=== PATIENT | male | born 1955 | race Caucasian/White ===

== ENCOUNTER 2016-12-23 13:58 | Inpatient (IN) ==
[2016-12-23] MEDS ORDERED: ALUM/MAG/SIMETH/LIDO VISC 1:1 30 ML BOTTLE PO STA (14:20)
[2016-12-23] MEDS ORDERED: ASPIRIN 325 MG TABLET PO STA (14:20)
[2016-12-23] MEDS ORDERED: NITROGLYCERIN 2% OINT 1 INCH/GM PACK TOP STA (14:20)
[2016-12-23] MEDS ORDERED: ENOXAPARIN 100 MG/ML SYRINGE SUBCUT STA (14:20)
[2016-12-23] MEDS ORDERED: ENOXAPARIN 100 MG/ML SYRINGE SUBCUT ONE (14:26)
[2016-12-23] MEDS ORDERED: ALUM/MAG/SIMETH/LIDO VISC 1:1 30 ML BOTTLE PO ONE (14:26)
[2016-12-23] MEDS ORDERED: ASPIRIN 325 MG TABLET ONE (14:26)
[2016-12-23] MEDS ORDERED: NITROGLYCERIN 2% OINT 1 INCH/GM PACK TOP ONE (14:27)
[2016-12-23 14:38] LABS: Basophils # 0.1 10*3/uL (0.0-0.2); Basophils % 1.4 % (0.0-0.8); Eosinophils # 0.1 10*3/uL (0.0-0.87); Eosinophils % 1.2 % (0.00-10.9); Hematocrit 41.5 VOL% (42.0-52.0); Hemoglobin 14.1 GM/DL (14.0-18.0); Immature Granulocytes % 0.2 %; Immature Granulocytes Absolute 0.02 #; Lymphocytes # 3.5 10*3/uL (1.4-4.0); Lymphocytes % 37.7 % (21.2-54.2); Mean Corpuscular Hemoglobin 31 PG (27-34); Mean Corpuscular Volume 90.2 FL (87-102); Mean Platelet Volume 11.7 FL (9.6-12.0); Monocytes # 0.9 10*3/uL (0.11-0.8); Monocytes % 9.3 % (1.7-12.7); Neutrophils # 4.6 10*3/uL (1.4-7.4); Neutrophils % 50.2 % (38.7-73.9); Platelet Count 205 T/CUMM (130-400); Red Cell Distribution Width 13.6 % (9.3-17.3); White Blood Count 9.2 T/CUMM (4-12)
--- NOTE | 2016-12-23 14:40 | Emergency Department Note ---
Trevin Joe Gwan, am scribing for, and in the presence of, Jorge Bonilla MD 14:20 . Irene Joe James D, MD, personally performed the services described in this documentation, ascribed by Jass Zhong in my presence, and it is both accurate and complete 440 . Arrival - Arrival Chief Complaint: Chest Pain Stated Complaint: chest pains ED Nursing Triage Note: c/o chest pain that started 2-3 days. +SOB denies n/v Mode of Arrival: Ambulatory Limitations: No Limitations Source: Patient, Old Records Reviewed, RN Notes Reviewed Time Seen by Provider: 12/23/16 14:12 - History of Present Illness HPI Narrative: Pt is a 61 y/o male who presents to the ED with a c/o chest pain with an onset 3 days. His associated sxs have been SOB. He describes his pain as tight and that his heart is "doing something" and that is pain worsened today. He confirmed that he smokes 1.5 ppd and that he use to smoke 1 ppd. Patient denies any prior heart problems, have diaphoresis or any N/V. No other problems/ complaints reported in ED. Onset (ago): day(s) Consistency: constant Severity: moderate Allergies/Adverse Reactions: Allergies Allergy/AdvReac Type Severity Reaction Status Date / Time Buspirone [From BuSpar] Allergy Unknown/Unable Verified 12/23/16 14:07 to obtain Review of System - Review of System 12 point system: reviewed and no additional remarkable complaints except as stated - Review of System Respiratory: Present: as per HPI, other (shortness of breathe) Cardiovascular: Present: as per HPI, chest pain Medical,Surgical,& Family Hx - Medical History Psychological: History of: Depression Neurology: History of: Peripheral Neuropathy Musculoskeletal: History of: Back/Neck Problems - Social History Smoking Status: Smoker, status unknown Frequency of Alcohol Use: None Type of Drug Use: None Exam Vital Signs: Vital Signs Temperature 99.7 F H 12/23/16 14:04 Pulse Rate 92 H 12/23/16 14:17 Respiratory Rate 20 12/23/16 14:17 Blood Pressure 156/80 12/23/16 14:17 O2 Sat by Pulse Oximetry 100 12/23/16 14:17 GENERAL: This is a chronically ill-appearing white male in no apparent distress. VITAL SIGNS: Reviewed HEENT: Head is atraumatic and normocephalic. Pupils are equal round react to light. Extraocular movements are intact. Oropharynx is benign with moist mucous membranes. NECK: Neck is soft and supple without tenderness. There are no masses. There is no lymphadenopathy. LUNGS: Lungs are clear to auscultation. Chest rises symmetrically. There is no chest wall tenderness. CV: Heart is regular rate and rhythm without murmurs rubs or gallops. ABDOMEN: Abdomen is soft, nontender to palpation. There are no abdominal abnormal masses palpated. There is no organomegaly. Bowel sounds are present and active. SKIN: Skin is warm and dry. No rash. EXTREMITIES: Patient has full range of motion without tenderness. There is no pedal edema. NEUROLOGIC: Awake alert and oriented 4. Cranial nerves II through XII are grossly intact. Motor is 5 over 5 in all extremities bilaterally. Course - Consultations Consultation #1: Discussed with hospitalist. Patient will be admitted to their service. Time: 15:13 Results - Labs CBC & BMP: 12/23/16 14:21 12/23/16 14:21 Lab Results: I have reviewed the patients labs Labs: Laboratory Tests 12/23/16 14:21 Troponin I < 0.015 - EKG EKG results: interpreted by ERMD - Impressions EKG: Sinus tachycardia with a rate of 102, nonspecific ST-T wave changes, normal axis. - Diagnostic Findings Procedure: Chest x-ray: image reviewed by me (No infiltrates, no pleural effusions.) Disposition Clinical Impression: Chest pain Case discussed with: patient Disposition: Still a Patient Condition: Stable
--- NOTE | 2016-12-23 14:47 | XRay Report ---
XR chest 2V Indication: Chest pain Comparison: 14 October 2009 Findings: The heart and mediastinum are normal in size and configuration. The pulmonary vascularity is normal in caliber. Lung volumes are increased with prominent bronchial markings. No lung infiltrates, effusions, pneumothorax or other abnormality is demonstrated. Impression: Chronic lung changes. No acute process or significant change. PROCEDURE INTERPRETED AT [facility] DEPARTMENT OF RADIOLOGY Final Report Signed by: Dr. Sukhdev Diaz
[2016-12-23 14:50] LABS: PT Patient Result 10.5 SECS; Partial Thromboplastin Time 29.5 SECS (0-40)
[2016-12-23 15:07] LABS: Alanine Aminotransferase 13 U/L (16-61); Albumin 3.9 G/DL (3.4-5.0); Alkaline Phosphatase 72 U/L (45-117); Aspartate Amino Transferase 16 U/L (0-37); Bilirubin,Total < 0.39 MG/DL (0.2-1.0); Blood Urea Nitrogen 11 MG/DL (7-18); Calcium 8.8 MG/DL (8.5-10.1); Glucose 86 MG/DL (74-106); Osmolality,Calculated 276.4 MOS/KG (273-304); Potassium 3.8 MMOL/L (3.5-5.1); Sodium 140 MMOL/L (136-145); Total Protein 7.9 G/DL (6.4-8.3)
[2016-12-23] MEDS ORDERED: NITROGLYCERIN SL 0.4 MG TABLET SL PRN (15:16)
[2016-12-23] MEDS ORDERED: ACETAMINOPHEN 325 MG TABLET PO PRN (15:16)
[2016-12-23] MEDS ORDERED: LACTULOSE 20 GM/30 ML UDCUP PO PRN (15:16)
[2016-12-23] MEDS ORDERED: DOCUSATE SODIUM 100 MG CAPSULE PO PRN (15:16)
[2016-12-23 15:37] LABS: Apearance,Urine CLEAR (Clear); Bilirubin,Urine Negative (Negative); Blood, Urine Negative (Negative); Glucose,Urine (UA) Negative (Negative); Ketones,Urine Negative (Negative); Nitrite,Urine Negative (Negative); Protein,Urine Negative; Urine Color Straw (Yellow); Urine Specific Gravity 1.004 (1.001-1.035); Urine Urobilinogen < 2.0 EU/DL (0.2-1.0); WBC,Urine <1 /HPF (0-6)
[2016-12-23 15:44] LABS: Barbiturates Screen,Urine Negative (Negative); Benzodiazepines Screen,Urine Negative (Negative); Cannabinoid Screen,Urine Positive (Negative); Opiate Screen,Urine Negative (Negative); Phencyclidine Screen,Urine Negative (Negative)
--- NOTE | 2016-12-23 16:21 | Hospitalist History & Physical ---
Assessment and Plan - Time spent with patient Time spent with patient: Greater than 30 minutes (due to assessment, plan and documentation) (1) Chest pain Status: Acute Assessment and plan: serial troponins, ekg's cardiology consultation vte prophylaxis Current Visit: Yes History of Present Illness Chief complaint: chest pain History of present illness: Mr. Mohan is a 61 year old male who presented to the ED today for chest pain. He states that he was sitting at home when his misternal chest pain that radiated to his left arm. Denies any diaphoresis. He states that he does have some shortness of breath at baseline, and had no more SOB that usual. He smoke marijuana for pain control and smoke 1 ppd of tobacco. He is not diabetic, or hypertensive. He states that he has been told that his cholesterol is borderline. Denies drinking. He has never had an TN, CVA, DVT/PE, or malignancy to his knowledge. He does have a family history of TN, CA, CVA, Clots, DM, HTN and HLD. He also has nerve disease. He takes ultram 50 mg TID, Baclofen 10 mg TID, Lyrica TID and Elavil 50 at HS for disc problems. He sees Dr. Zapien in [place]. Troponins are negative at this time. He will be admitted to telemetry for serial troponins, ekg's and cardiology consultation. Further plan and addendum to follow by Dr. Sumi Pagan. Home Medications Medication Instructions Recorded Confirmed Type Amitriptyline [Elavil] 50 mg PO BEDTIME 12/23/16 12/23/16 History Baclofen Tab [Lioresal] 10 mg PO TID 12/23/16 12/23/16 History Pregabalin [Lyrica] 100 mg PO TID 12/23/16 12/23/16 History Tramadol HCl [Tramadol Tab] 50 mg PO TID 12/23/16 12/23/16 History Allergies Allergy/AdvReac Type Severity Reaction Status Date / Time Buspirone [From BuSpar] Allergy Unknown/Unable Verified 12/23/16 14:07 to obtain Medical,Surgical,& Family Hx - Medical History Psychological: History of: Depression Neurology: History of: Peripheral Neuropathy Musculoskeletal: History of: Back/Neck Problems - Surgical History Surgical History: noncontributory - Family History Family History: Reports;: Family Cancer, Family Diabetes, Family Heart Disease, Family Hematology, Family Hypertension, Family Stroke - Social History Smoking Status: Current every day smoker Frequency of Alcohol Use: None Type of Drug Use: Marijuana Marital Status: Lives With:: Spouse Functional capacity: independent ambulation - Constitutional Constitutional: Absent: chills, fatigue, fever(s), weakness - EENT Eyes: Absent: blurry vision, diplopia Ears: Absent: decreased hearing, tinnitus Nose, mouth and throat: Absent: dysphagia, headache(s) - Cardiovascular Cardiovascular: Present: chest pain at rest, radiating jaw, neck or arm pain. Absent: diaphoresis, dyspnea on exertion, palpitations - Respiratory Respiratory: Absent: cough, hemoptysis, dyspnea on exertion - Gastrointestinal Gastrointestinal: Absent: abdominal pain, melena, nausea, vomiting - Genitourinary Genitourinary: Absent: difficulty urinating, hematuria - Musculoskeletal Musculoskeletal: Absent: arthralgias, joint swelling - Neurological Neurological: Absent: confusion, dizziness - Psychiatric Psychiatric: Absent: anxiety, confusion, depression - Endocrine Endocrine: Absent: cold intolerance, heat intolerance - Hematologic/Lymphatic Hematologic/Lymphatic: Absent: easy bleeding, easy bruising Exam - Constitutional General appearance: normal weight, no acute distress - Head Head exam: Present: normal inspection, normocephalic - Eye Eye exam: Present: EOMI. Absent: scleral icterus Pupils: Present: VALE, normal accommodation - ENT ENT exam: Present: normal exam, normal oropharynx - Neck Neck exam: Present: normal inspection. Absent: lymphadenopathy - Respiratory Respiratory exam: Present: clear to auscultation bilaterally. Absent: accessory muscle use - Cardiovascular Cardiovascular exam: Present: regular rate and rhythm. Absent: carotid bruit - GI/Abdominal GI/Abdominal exam: Present: normal bowel sounds, soft. Absent: tenderness - Extremities Exam Extremities exam: Present: normal inspection. Absent: edema - Back Exam Back exam: Present: normal inspection. Absent: muscle spasm - Neurological Exam Neurological exam: Present: alert, oriented X3 - Psychiatric Psychiatric exam: Present: normal affect, normal mood - Skin Skin exam: Present: normal color, warm, dry, intact Results - Labs CBC & BMP: 12/23/16 14:21 12/23/16 14:21 Lab Results: I have reviewed the past 24 hour labs
--- NOTE | 2016-12-23 17:47 | CT Report ---
EXAM: CT chest PE study DATE: December 23, 2016 COMPARISON: CT chest with contrast March 05, 2010 REASON: Chest pain TECHNIQUE: Axial images of the chest were obtained after administration of 80 cc of Omnipaque 350 intravenous contrast. Coronal and sagittal reformatted images were also acquired as well as coronal/sagittal MIP images. The study was performed per pulmonary embolism protocol. Total DLP was 226.8 mGy*cm. FINDINGS: Pulmonary arteries: There is no evidence of pulmonary embolism through the segmental pulmonary arteries. Vascular/heart: The thoracic aorta is normal in size. Evaluation of the aorta is limited by poor opacification. There is mild scattered calcified plaque at the arteries, including the coronary arteries. The heart is normal in size, and no pericardial effusion is seen. Lymph nodes: There are a few upper normal-sized mediastinal lymph nodes. A subcarinal lymph node measures 0.9 cm in short axis diameter on image 75. There are also a few nonspecific mildly prominent left hilar lymph nodes. A left hilar lymph node on image 78 measures 1.3 cm in short axis diameter. No suspicious right hilar or axillary adenopathy is identified. Other mediastinum: Otherwise unremarkable. Chest wall: Unremarkable. Lungs: There is a 1.8 m noncalcified nodule with irregular margins at the left lung apex. This abuts the pleural surface and is concerning for a neoplastic process. Other considerations include focal scarring. Correlation with a PET CT may be helpful. There is moderate to severe emphysema with bleb formation. This is mainly in a centrilobular distribution and is post prominent at the right upper lobe and lower lobes. Minimal scattered opacities are present within both lungs, mainly within the basilar portions of both lower lobes and at the lung apices. This is most consistent with atelectasis and likely scarring. A 0.6 cm noncalcified nodule is seen adjacent to the major fissure on image 80. This is nonspecific, and follow-up is recommended. No pneumothorax or pleural effusion is identified. Bones: There is mild height loss at the superior endplate of T7. This could representing a prominent Schmorl's node or mild indeterminate age compression fracture. No significant retropulsion is seen. There are several remote left rib fractures. Upper abdomen: No acute process is seen within the visualized upper abdomen. IMPRESSION: 1. No evidence of pulmonary embolism. 2. A 1.8 cm noncalcified nodule with irregular margins is seen at the left lung apex. It abuts the pleural surface and is concerning for a neoplastic process. Other considerations include focal scarring. Correlation with PET CT may be helpful. 3. Nonspecific mildly prominent left hilar lymph nodes. Metastatic adenopathy is in the differential given the nodule at the left lung apex. 4. Nonspecific 0.6 cm noncalcified nodule adjacent to the right minor fissure. Follow-up with CT is recommended in 3-6 months to evaluate for stability. 5. Moderate to severe emphysema and minimal scattered atelectasis and probable scarring within both lungs. PROCEDURE INTERPRETED AT [facility] DEPARTMENT OF RADIOLOGY Final Report Signed by: Dr. Dixon Davidson
[2016-12-23] MEDS: BACLOFEN 10 MG TABLET PO SCH (21:02)
[2016-12-23] MEDS: traMADol 50 MG TABLET PO SCH (21:02)
[2016-12-23] MEDS: AMITRIPTYLINE 50 MG TABLET PO SCH (21:02)
[2016-12-23] MEDS: PREGABALIN 100 MG CAPSULE PO SCH (21:03)
[2016-12-23] MEDS: ENOXAPARIN 40 MG/0.4 ML SYRINGE SUBCUT SCH (21:03)
--- NOTE | 2016-12-23 21:32 | EKG Report ---
Stationary ECG Study [facility] Test Date: 12/23/2016 9:31:18 PM Pat Name: MEGHAN JOHNSON Department: Room: 262 Gender: M Vacuum Pan Operator: EDISON : 1955 Requested by: Jorge Brooks Order Number: [id number] Reading MD: HILARY BAPTISTE Intervals [place] Rate: 57 P: 61 TN: 120 QRS: 64 QRSD: 85 T: 83 QT: 433 QTc: 428 Interpretive Statements SINUS RHYTHM WITH OCCASIONAL VENTRICULAR PREMATURE COMPLEXES Electronically Signed On 12-23-16 22:32:47 SUPPLY CHAIN DESIGN MANAGER by HILARY BAPTISTE [email or web address]
[2016-12-24 04:31] LABS: Basophils # 0.1 10*3/uL (0.0-0.2); Basophils % 1.5 % (0.0-0.8); Eosinophils # 0.2 10*3/uL (0.0-0.87); Eosinophils % 2.4 % (0.00-10.9); Hematocrit 43.5 VOL% (42.0-52.0); Hemoglobin 14.4 GM/DL (14.0-18.0); Immature Granulocytes % 0.1 %; Immature Granulocytes Absolute 0.01 #; Lymphocytes # 2.8 10*3/uL (1.4-4.0); Mean Corpuscular HGB Conc 33.1 GM/DL (32-36); Mean Corpuscular Hemoglobin 30 PG (27-34); Monocytes # 0.8 10*3/uL (0.11-0.8); Monocytes % 10.8 % (1.7-12.7); Neutrophils # 3.4 10*3/uL (1.4-7.4); Neutrophils % 47.2 % (38.7-73.9); Platelet Count 199 T/CUMM (130-400); Red Blood Count 4.73 MC/CUMM (3.8-5.5); Red Cell Distribution Width 13.9 % (9.3-17.3); White Blood Count 7.2 T/CUMM (4-12)
[2016-12-24 05:02] LABS: Albumin 3.5 G/DL (3.4-5.0); Bilirubin,Total 0.5 MG/DL (0.2-1.0); Calcium 8.6 MG/DL (8.5-10.1); Total Protein 6.9 G/DL (6.4-8.3)
[2016-12-24 05:03] LABS: Magnesium 2.3 MG/DL (1.8-2.4); Risk Ratio 6.41; VLDL CHOLESTEROL 29.6 MG/DL
--- NOTE | 2016-12-24 07:28 | EKG Report ---
Stationary ECG Study [facility] Test Date: 12/23/2016 2:05:04 PM Pat Name: MEGHAN JOHNSON Department: Room: 262 Gender: M Scleroscope Tester: Parviz Franklin : 1955 Requested by: Jorge Brooks Order Number: [id number] Reading MD: HILARY BAPTISTE Intervals [place] Rate: 102 P: 68 AR: 142 QRS: 77 QRSD: 86 T: 83 QT: 305 QTc: 364 Interpretive Statements SINUS TACHYCARDIA Electronically Signed On 12-25-16 00:11:55 PRINTED CIRCUIT BOARDS PLASMA ETCHER by HILARY BAPTISTE [email or web address]
[2016-12-24] MEDS: BACLOFEN 10 MG TABLET PO SCH ×3 (09:37→20:59)
[2016-12-24] MEDS: PREGABALIN 100 MG CAPSULE PO SCH ×3 (09:37→22:42)
[2016-12-24] MEDS: PANTOPRAZOLE 40 MG TABLET PO SCH (09:38)
[2016-12-24] MEDS: traMADol 50 MG TABLET PO SCH ×3 (09:38→20:59)
--- NOTE | 2016-12-24 11:04 | Hospitalist Progress Note ---
Assessment and Plan - Time spent with patient Time spent with patient: Greater than 30 minutes (1) Pulmonary nodule Status: Acute Assessment and plan: We'll consult pulmonary. Current Visit: Yes (2) Chest pain Status: Acute Assessment and plan: Cardiac risk factors present. Serial troponins negative. EKG unremarkable. We 'll consult cardiology. Current Visit: Yes (3) Tobacco abuse counseling Status: Acute Assessment and plan: Patient was counseled on tobacco abuse. Current Visit: Yes (4) Hyperlipidemia Status: Acute Assessment and plan: We'll start Lipitor. Current Visit: Yes Hospitalist: Subjective Interval history: Patient has no complaints. He's had no chest pain overnight. He has no shortness of breath. Exam - Constitutional Vitals: Period Temp Pulse Resp BP Sys/Goldman Pulse Ox Last 24 Hr 96.7 F-97.8 F 55-71 16-20 94-134/61-86 93-100 General appearance: no acute distress - Head Head exam: Present: normocephalic, atraumatic - Eye Eye exam: Present: EOMI Pupils: Present: VALE - ENT ENT exam: Present: normal exam - Neck Neck exam: Present: normal inspection - Respiratory Respiratory exam: Present: clear to auscultation bilaterally. Absent: rhonchi, wheezes - Cardiovascular Cardiovascular exam: Present: regular rate and rhythm. Absent: gallop, rubs, systolic murmur - GI/Abdominal GI/Abdominal exam: Present: normal bowel sounds, soft. Absent: distended, firm , guarding, tenderness, rebound - Extremities Exam Extremities exam: Present: normal inspection. Absent: calf tenderness, edema Results - Labs CBC & BMP: 12/24/16 03:21 12/24/16 03:21 Lab Results: I have reviewed the past 24 hour labs
--- NOTE | 2016-12-24 16:18 | Cardiology Consult Note ---
Assessment and Plan (1) Chest pain Status: Acute Current Visit: Yes (2) Pulmonary nodule Status: Acute Current Visit: Yes (3) Tobacco abuse counseling Status: Acute Current Visit: Yes (4) Hyperlipidemia Status: Acute Current Visit: Yes History of Present Illness - Data of Consult Patient: new to practice Consult date: 12/24/16 Requesting Physician: Sumi Pagan - Consult Narrative Reason for consult: CP History of present illness: Mr. Mohan is a 61 year old male without a prior cardiac history, risk factors significant for tobacco use and a family history of early coronary artery disease. He came to the hospital to be evaluated for chest pain. He experienced an acute onset of a severe chest discomfort in his upper central chest described as a pressure. He thinks it may have radiated into his right upper quadrant. There may have been some associated shortness of breath. Symptom duration was 15 minutes or greater without clear triggers or alleviators. Taking deep breaths may have helped. He did experience similar symptoms with less severity approximately one week prior, again without clear triggers or alleviators. At the time of my interview he is symptom free. He denies any orthopnea, lower extremity edema, palpitations, presyncope or syncope. He has some chronic pain. Part of his workup has included a chest CT which ruled out pulmonary embolism but demonstrated some abnormal pulmonary findings which could be consistent with malignancy, particularly in the setting of this patient's tobacco use. At the time of my interview he is asymptomatic. Positive review of systems: Chronic pain in his back, neck, limbs. He has been experiencing headaches with increased frequency lately. He is noted have a mildly decreased left lower extremity pulse and he acknowledges pain in this limb, although it is difficult to elucidate whether or not this is true claudication. Impression: 1. Chest pain-there is some atypical features to the pain's characteristics, and in the patient's ECG and cardiac biomarkers are unremarkable. However, given his significant tobacco use he is at at least intermediate risk for coronary artery disease. We can further risk stratify him on Monday with stress testing. 2. Hyperlipidemia-we will start statin therapy. 3. Abnormal chest CT-pulmonology has been consulted. 4. Headaches-defer further workup for possible sources of this given his history to the hospitalist service. 5. Tobacco use-the merits and techniques of cessation have been addressed. 6. Decreased left lower extremity pulse-consider outpatient ABIs. CC: Sumi Pagan MD - Home Medications and Allergies Home Medications: Home Medications Medication Instructions Recorded Confirmed Type Amitriptyline [Elavil] 50 mg PO BEDTIME 12/23/16 12/23/16 History Baclofen Tab [Lioresal] 10 mg PO TID 12/23/16 12/23/16 History Pregabalin [Lyrica] 100 mg PO TID 12/23/16 12/23/16 History Tramadol HCl [Tramadol Tab] 50 mg PO TID 12/23/16 12/23/16 History Allergies/Adverse Reactions: Allergies Allergy/AdvReac Type Severity Reaction Status Date / Time Buspirone [From BuSpar] Allergy Unknown/Unable Verified 12/23/16 14:07 to obtain 12 point system: reviewed and no additional remarkable complaints except as stated Medical,Surgical,& Family Hx - Medical History Psychological: History of: Depression Neurology: History of: Peripheral Neuropathy Musculoskeletal: History of: Back/Neck Problems - Family History Family History: Reports;: Family Cancer, Family Diabetes, Family Heart Disease, Family Hematology, Family Hypertension, Family Stroke - Social History Smoking Status: Current every day smoker Frequency of Alcohol Use: None Type of Drug Use: Marijuana Functional capacity: independent ambulation Physical Examination Vital Signs Temp Pulse Resp BP Pulse Ox 99.7 F H 97 H 18 175/102 97 12/23/16 14:04 12/23/16 14:04 12/23/16 14:04 12/23/16 14:04 12/23/16 14:04 Other: General appearance: normal weight, no acute distress - Head Head exam: Present: normal inspection, normocephalic, atraumatic. Absent: hematoma, laceration - Eye Eye exam: Present: EOMI. Absent: conjunctival injection, nystagmus, periorbital swelling, scleral icterus, laceration to eyelids Pupils: Present: PERRL. Absent: constricted, dilated, fixed, irregular, unequal - ENT ENT exam: Present: normal exam, normal external ear exam - Neck Neck exam: Present: normal inspection. Absent: lymphadenopathy, meningismus, tenderness, thyromegaly - Respiratory Respiratory exam: Present: Prolonged expiration with rhonchi bilaterally. Absent: accessory muscle use, chest wall tenderness - Cardiovascular Cardiovascular exam: Present: regular rate and rhythm. Absent: carotid bruit, gallop, JVD, rubs - GI/Abdominal GI/Abdominal exam: Present: normal bowel sounds, soft. Absent: distended, firm , guarding, hernia, mass, tenderness, rebound. - Extremities Exam Extremities exam: Present: Decreased hair distribution the bilateral lower extremities, decreased left lower extremity pulse compared to right lower extremity. Absent: calf tenderness, edema - Back Exam Back exam: Present: normal inspection. Absent: muscle spasm, vertebral tenderness - Neurological Exam Neurological exam: Present: alert, oriented X3, grossly intact without resting or intention tremor - Psychiatric Psychiatric exam: Present: normal affect, normal mood - Skin Skin exam: Present: normal color, warm, dry, intact. Absent: cyanosis, diaphoretic, rash, urticaria Result/EKG - Labs CBC & BMP: 12/24/16 03:21 12/24/16 03:21 Lab Results: I have reviewed the past 24 hour labs Labs: Laboratory Results - last 24 hr 12/23/16 12/23/16 12/24/16 17:56 20:35 03:21 WBC 7.2 RBC 4.73 Hgb 14.4 Hct 43.5 MCV 92.0 MCH 30 MCHC 33.1 RDW 13.9 Plt Count 199 MPV 12.0 Neut % (Auto) 47.2 Lymph % (Auto) 38.0 [place] % (Auto) 10.8 Eos % (Auto) 2.4 Baso % (Auto) 1.5 H Neut # (Auto) 3.4 Lymph # (Auto) 2.8 [facility] # (Auto) 0.8 Eos # (Auto) 0.2 Baso # (Auto) 0.1 Immature Gran % 0.1 Nucleated RBC % 0.0 Immature Gran # 0.01 Nucleated RBCs # 0.00 Sodium Potassium Chloride Carbon Dioxide Anion Gap BUN Creatinine GFR Calculation BUN/Creatinine Ratio Glucose Calculated Osmolality Calcium Magnesium Total Bilirubin AST ALT Alkaline Phosphatase Troponin I < 0.015 < 0.015 Total Protein Albumin Globulin Albumin/Globulin Ratio Triglycerides Cholesterol LDL Cholesterol VLDL Cholesterol HDL Cholesterol Heart Disease Risk Ratio 12/24/16 03:21 WBC RBC Hgb Hct MCV MCH MCHC RDW Plt Count MPV Neut % (Auto) Lymph % (Auto) [facility] % (Auto) Eos % (Auto) Baso % (Auto) Neut # (Auto) Lymph # (Auto) [facility] # (Auto) Eos # (Auto) Baso # (Auto) Immature Gran % Nucleated RBC % Immature Gran # Nucleated RBCs # Sodium 143 Potassium 4.0 Chloride 106 Carbon Dioxide 29 Anion Gap 12.0 BUN 12 Creatinine 0.90 GFR Calculation 107 BUN/Creatinine Ratio 13.00 Glucose 87 Calculated Osmolality 283.0 Calcium 8.6 Magnesium 2.3 Total Bilirubin 0.50 AST 14 ALT 13 L Alkaline Phosphatase 72 Troponin I Total Protein 6.9 Albumin 3.5 Globulin 3.4 Albumin/Globulin Ratio 1.0 L Triglycerides 148 Cholesterol 237 H LDL Cholesterol 170.0 VLDL Cholesterol 29.6 HDL Cholesterol 37 L Heart Disease Risk Ratio 6.41 - Diagnostic Findings Procedure: Chest x-ray: report reviewed by me, CT - chest: report reviewed by me - EKG EKG results: interpreted by me, sinus rhythm (with PVC)
[2016-12-24] MEDS: ATORVASTATIN 40 MG TABLET PO SCH (20:59)
[2016-12-24] MEDS: ENOXAPARIN 40 MG/0.4 ML SYRINGE SUBCUT SCH (20:59)
[2016-12-24] MEDS: AMITRIPTYLINE 50 MG TABLET PO SCH (20:59)
[2016-12-25 04:59] LABS: Basophils # 0.1 10*3/uL (0.0-0.2); Basophils % 1.5 % (0.0-0.8); Eosinophils # 0.2 10*3/uL (0.0-0.87); Eosinophils % 2.1 % (0.00-10.9); Hematocrit 43.8 VOL% (42.0-52.0); Hemoglobin 14.8 GM/DL (14.0-18.0); Immature Granulocytes % 0.1 %; Immature Granulocytes Absolute 0.01 #; Lymphocytes % 36.7 % (21.2-54.2); Mean Corpuscular HGB Conc 33.8 GM/DL (32-36); Mean Corpuscular Hemoglobin 31 PG (27-34); Mean Corpuscular Volume 90.3 FL (87-102); Mean Platelet Volume 11.9 FL (9.6-12.0); Monocytes # 0.9 10*3/uL (0.11-0.8); Monocytes % 10.7 % (1.7-12.7); Neutrophils # 4.1 10*3/uL (1.4-7.4); Neutrophils % 48.9 % (38.7-73.9); Platelet Count 197 T/CUMM (130-400); Red Blood Count 4.85 MC/CUMM (3.8-5.5); Red Cell Distribution Width 14.2 % (9.3-17.3); White Blood Count 8.3 T/CUMM (4-12)
[2016-12-25 05:38] LABS: Calcium 8.7 MG/DL (8.5-10.1); Osmolality,Calculated 287.7 MOS/KG (273-304)
[2016-12-25] MEDS: PANTOPRAZOLE 40 MG TABLET PO SCH (08:15)
[2016-12-25] MEDS: BACLOFEN 10 MG TABLET PO SCH ×3 (08:15→21:58)
[2016-12-25] MEDS: PREGABALIN 100 MG CAPSULE PO SCH ×3 (08:15→21:58)
[2016-12-25] MEDS: traMADol 50 MG TABLET PO SCH ×3 (08:15→21:58)
[2016-12-25] MEDS: ASPIRIN EC 81 MG TABLET PO SCH (08:17)
--- NOTE | 2016-12-25 12:18 | Cardiology Progress Note ---
Assessment and Plan (1) Chest pain Status: Acute Current Visit: Yes (2) Pulmonary nodule Status: Acute Current Visit: Yes (3) Tobacco abuse counseling Status: Acute Current Visit: Yes (4) Hyperlipidemia Status: Acute Current Visit: Yes Cardiology - PN: Subj Interval history: The patient was admitted to the hospital with atypical chest pain. He has no prior cardiac history. CT of the chest to rule out pulmonary embolism demonstrated abnormal findings that can be Consistent with malignancy. He is currently not having any chest pain and denies shortness of breath. Impression and plan: 1. Chest pain-or some atypical features. If the patient remains in the hospital we will perform stress testing tomorrow for further risk stratification. If he remains asymptomatic and ambulating the halls without symptoms is going to be performed as an outpatient. 2. Abnormal chest CT-pulmonary has been consulted for evaluation. 3. Hyperlipidemia-uncontrolled. Lipitor has been added. Exam (Progress Note) - Constitutional Vitals: Period Temp Pulse Resp BP Sys/Goldman Pulse Ox Last 24 Hr 96.6 F-98.5 F 62-72 12-20 107-140/63-72 93-95 Exam: General appearance: normal weight, no acute distress - Head Head exam: Present: normal inspection, normocephalic, atraumatic. Absent: hematoma, laceration - Eye Eye exam: Present: EOMI. Absent: conjunctival injection, nystagmus, periorbital swelling, scleral icterus, laceration to eyelids Pupils: Present: PERRL. Absent: constricted, dilated, fixed, irregular, unequal - ENT ENT exam: Present: normal exam, normal external ear exam - Neck Neck exam: Present: normal inspection. Absent: lymphadenopathy, meningismus, tenderness, thyromegaly - Respiratory Respiratory exam: Present: clear to auscultation bilaterally. Absent: accessory muscle use, chest wall tenderness - Cardiovascular Cardiovascular exam: Present: regular rate and rhythm. Absent: carotid bruit, gallop, JVD, rubs - GI/Abdominal GI/Abdominal exam: Present: normal bowel sounds, soft. Absent: distended, firm , guarding, hernia, mass, tenderness, rebound. - Extremities Exam Extremities exam: Present: normal inspection, normal capillary refill. Absent: calf tenderness, edema - Back Exam Back exam: Present: normal inspection. Absent: muscle spasm, vertebral tenderness - Neurological Exam Neurological exam: Present: alert, oriented X3, grossly intact without resting or intention tremor - Psychiatric Psychiatric exam: Present: normal affect, normal mood - Skin Skin exam: Present: normal color, warm, dry, intact. Absent: cyanosis, diaphoretic, rash, urticaria Result/EKG - Labs CBC & BMP: 12/25/16 03:58 12/25/16 03:58 Lab Results: I have reviewed the past 24 hour labs Labs: Laboratory Results - last 24 hr 12/25/16 12/25/16 03:58 03:58 WBC 8.3 RBC 4.85 Hgb 14.8 Hct 43.8 MCV 90.3 MCH 31 MCHC 33.8 RDW 14.2 Plt Count 197 MPV 11.9 Neut % (Auto) 48.9 Lymph % (Auto) 36.7 [place] % (Auto) 10.7 Eos % (Auto) 2.1 Baso % (Auto) 1.5 H Neut # (Auto) 4.1 Lymph # (Auto) 3.0 [place] # (Auto) 0.9 H Eos # (Auto) 0.2 Baso # (Auto) 0.1 Immature Gran % 0.1 Nucleated RBC % 0.0 Immature Gran # 0.01 Nucleated RBCs # 0.00 Sodium 145 Potassium 4.0 Chloride 108 H Carbon Dioxide 26 Anion Gap 15.0 BUN 14 Creatinine 1.00 GFR Calculation 94 BUN/Creatinine Ratio 14.00 Glucose 87 Calculated Osmolality 287.7 Calcium 8.7
--- NOTE | 2016-12-25 13:27 | Pulmonology Consult Note ---
History of Present Illness Chief complaint: Chest x-ray suspicious for cancer. Chest pain. CMT disease History of present illness: Mr. Mohan is a 61 year old white male from [facility]. I have been asked to see him in pulmonary consultation for evaluation of an abnormal chest x-ray. This patient was admitted with chest pain that lasted 15-20 minutes. It was low substernal. It took his breath. He has had this pain on other occasions. It often occurs at rest and is not necessarily associated with exertion. He has never taken a nitroglycerin. He absolutely denies any solid dysphagia or gastroesophageal reflux. He has no idea what precipitates this pain. He says usually he does fairly well on the previous fairly well. He occasionally has a cough productive of thin clear sputum. He has never had any hemoptysis. The remainder of the review of systems is negative Allergies. BuSpar Home medicines. Amitriptyline. Baclofen. Lyrica. Tramadol. Past history. Depression. Peripheral neuropathy. Charcot Grisel tooth disease. 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 Family history. Positive for cancer diabetes heart disease high blood pressure and strokes. Social history patient started smoking around age 19 and is smoked a pack a day for most days. He continues to smoke but he says he is down to about a half a pack of cigarettes per day. He denies alcohol. He says he smokes marijuana. Disabled secondary to degenerative joint disease and CMT disease. Chest x-ray. 12/23/2016. My interpretation. Heart size is normal. Both hilar areas contain scarring. Pulmonary arteries appear to be normal. The mediastinum is normal. Right lung is clear. There is minor apical capping on the right lung. The left lung is clear except for calcified interstitial scarring superior and lateral to the left hilum. There is apical capping and there are what appear to be 2 separate scars near the posterior apex of the left lung. CT of the chest done 12/23/2016. This was compared to a film done 03/05/2010. I do not see any lymphadenopathy in the hilar areas or in the mediastinum. There are multiple areas of small bullae associated with emphysema. There is a 1.8 cm noncalcified nodule with irregular but not spiculated margins at the left apex. A small neck unless lesion abuts the pleural surface. There is a nonspecific 0.6 cm noncalcified nodule adjacent to the right minor fissure. Microbiology. Negative. Lab. Electrolytes are normal. Creatinine is 1.0. White count is 8300 with 48.9 segs 36.7 lymphocytes and 10.7 monocytes. H&H is 14.8/43.8 with normal indices. Platelets are 197,000 with normal mean platelet volume. Liver function tests are normal. Protein albumin and globulins are normal. Urinalysis is negative. Toxicology. Positive for cannabinoids. Physical exam. Vital signs. See below Psychiatric oriented 3 Neurologic. Cranial nerves are intact. There is mild decreased hearing acuity bilaterally. Patient moves all 4 extremities. Sensory exam was not done. Gait was not tested. Face is symmetrical. Lips and tongue appear to be normal. Neck. Symmetrical. No meningismus. No masses. Thyroid was not palpated Lymphatics. No submandibular cervical supraclavicular or epitrochlear adenopathy. Arterial exam. Fair upstroke of the carotids no bruits upper extremity pulses are palpable lower extremity pulses were nonpalpable. No evidence of lower extremity ischemia. Venous exam of the neck, the upper extremities and the lower extremities is normal Chest. Symmetrical slightly hyperinflated with mild prolongation of expiration. No wheeze. No stridor. No rales. Heart. No gallop. Abdomen. Nontender. No organs were palpated. Bowel sounds are present. and rectal deferred Extremities. No clubbing. Feet are high arched. Skin of the face hands and feet showed no infectious lesions. No other areas of skin were examined The remainder the physical exam is noncontributory. Impression. 1. Chest pain of undetermined etiology 2. Tobacco abuse 3. Hyperlipidemia with an LDL of 170. High risk for heart disease 4. Bullous emphysema and probably COPD 5. 1.8 irregular homogeneous nodule at the apex of the left upper lung that abuts the pleura posteriorly. 0.6 cm right lung nodule near the minor fissure. Both nodules need to be watched. The patient is at risk for scar carcinoma. 6. Degenerative joint disease of the neck and back 7. Charcot Grisel tooth disease Plan. 1. Before diagnostic procedures are done on the lung nodule in the left patient 's chest pain needs to be clarified and heart disease ruled in or out. 2. The lesion in the apex of the left lung is the lesion that is most suspicious. This will be hard to reach with bronchoscopy, but possible. This will probably also be difficult to reach with transthoracic biopsy, but could ask interventional radiology about the degree of difficulty. 3. He goes without saying that this patient should stop smoking. Home Medications Medication Instructions Recorded Confirmed Type Amitriptyline [Elavil] 50 mg PO BEDTIME 12/23/16 12/23/16 History Baclofen Tab [Lioresal] 10 mg PO TID 12/23/16 12/23/16 History Pregabalin [Lyrica] 100 mg PO TID 12/23/16 12/23/16 History Tramadol HCl [Tramadol Tab] 50 mg PO TID 12/23/16 12/23/16 History Allergies Allergy/AdvReac Type Severity Reaction Status Date / Time Buspirone [From BuSpar] Allergy Unknown/Unable Verified 12/23/16 14:07 to obtain Exam (Pulmonay) H&P - Constitutional Vitals: Period Temp Pulse Resp BP Sys/Goldman Pulse Ox Last 24 Hr 96.6 F-98.5 F 62-85 12-20 107-140/63-72 93-96 Medical,Surgical,& Family Hx - Medical History Psychological: History of: Depression Neurology: History of: Peripheral Neuropathy Musculoskeletal: History of: Back/Neck Problems - Family History Family History: Reports;: Family Cancer, Family Diabetes, Family Heart Disease, Family Hematology, Family Hypertension, Family Stroke - Social History Smoking Status: Current every day smoker Frequency of Alcohol Use: None Type of Drug Use: Marijuana Results - Labs CBC & BMP: 12/25/16 03:58 12/25/16 03:58
--- NOTE | 2016-12-25 15:40 | Hospitalist Progress Note ---
Assessment and Plan - Time spent with patient Time spent with patient: Greater than 30 minutes (1) Pulmonary nodule Status: Acute Assessment and plan: Appreicate Pulms assistance. Current Visit: Yes (2) Chest pain Status: Acute Assessment and plan: Stress test tomorrow. Current Visit: Yes (3) Tobacco abuse counseling Status: Acute Assessment and plan: Patient was counseled on tobacco abuse. Current Visit: Yes (4) Hyperlipidemia Status: Acute Assessment and plan: We'll start Lipitor. Current Visit: Yes Hospitalist: Subjective Interval history: No complaints currently, no overnight events. Exam - Constitutional Vitals: Period Temp Pulse Resp BP Sys/Goldman Pulse Ox Last 24 Hr 96.6 F-98.5 F 62-85 12-20 107-140/63-72 93-96 General appearance: no acute distress - Head Head exam: Present: normocephalic, atraumatic - Eye Eye exam: Present: EOMI Pupils: Present: VALE - ENT ENT exam: Present: normal exam - Neck Neck exam: Present: normal inspection - Respiratory Respiratory exam: Present: clear to auscultation bilaterally. Absent: rhonchi, wheezes - Cardiovascular Cardiovascular exam: Present: regular rate and rhythm. Absent: gallop, rubs, systolic murmur - GI/Abdominal GI/Abdominal exam: Present: normal bowel sounds, soft. Absent: distended, firm , guarding, tenderness, rebound - Extremities Exam Extremities exam: Present: normal inspection. Absent: calf tenderness, edema Results - Labs CBC & BMP: 12/25/16 03:58 12/25/16 03:58 Lab Results: I have reviewed the past 24 hour labs
[2016-12-25] MEDS: ENOXAPARIN 40 MG/0.4 ML SYRINGE SUBCUT SCH (21:58)
[2016-12-25] MEDS: AMITRIPTYLINE 50 MG TABLET PO SCH (21:58)
[2016-12-25] MEDS: ATORVASTATIN 40 MG TABLET PO SCH (21:58)
[2016-12-26 06:08] LABS: Basophils # 0.1 10*3/uL (0.0-0.2); Basophils % 1.2 % (0.0-0.8); Eosinophils # 0.2 10*3/uL (0.0-0.87); Eosinophils % 1.9 % (0.00-10.9); Hematocrit 45.2 VOL% (42.0-52.0); Immature Granulocytes % 0.2 %; Immature Granulocytes Absolute 0.02 #; Lymphocytes # 3.4 10*3/uL (1.4-4.0); Mean Corpuscular HGB Conc 33.2 GM/DL (32-36); Mean Corpuscular Hemoglobin 30 PG (27-34); Mean Corpuscular Volume 90.6 FL (87-102); Mean Platelet Volume 12.3 FL (9.6-12.0); Monocytes # 1.1 10*3/uL (0.11-0.8); Monocytes % 11.7 % (1.7-12.7); Neutrophils # 4.4 10*3/uL (1.4-7.4); Platelet Count 198 T/CUMM (130-400); Red Blood Count 4.99 MC/CUMM (3.8-5.5); Red Cell Distribution Width 14.1 % (9.3-17.3); White Blood Count 9.1 T/CUMM (4-12)
[2016-12-26 06:39] LABS: Calcium 8.8 MG/DL (8.5-10.1)
[2016-12-26] MEDS ORDERED: REGADENOSON 0.4 MG/5 ML SYRINGE IV ONE (08:00)
--- NOTE | 2016-12-26 08:23 | Cardiology Progress Note ---
Assessment and Plan - Time spent with patient Time spent with patient: Greater than 30 minutes (1) Marijuana abuse Status: Chronic Assessment and plan: SEE PLAN OF CARE LISTED BELOW Current Visit: Yes (2) Abnormal CT of the chest Status: Acute Assessment and plan: SEE PLAN OF CARE LISTED BELOW Current Visit: Yes (3) Frequent headaches Status: Chronic Assessment and plan: SEE PLAN OF CARE LISTED BELOW Current Visit: Yes (4) decreased pulses left lower extremity Status: Acute Assessment and plan: SEE PLAN OF CARE LISTED BELOW Current Visit: Yes (5) Chest pain Status: Acute Assessment and plan: SEE PLAN OF CARE LISTED BELOW Current Visit: Yes (6) Tobacco abuse counseling Status: Chronic Assessment and plan: SEE PLAN OF CARE LISTED BELOW Current Visit: Yes (7) Hyperlipidemia Status: Chronic Assessment and plan: SEE PLAN OF CARE LISTED BELOW Current Visit: Yes Cardiology - PN: Subj Interval history: Mr. Mohan is a 61 year old male without a prior cardiac history, admitted by Dr. Rose over the weekend. Risk factors significant for tobacco use and a family history of early coronary artery disease. He presented to the emergency department at [facility] 12/24/2016 with complaints of chest pain. His cardiac biomarkers are negative and EKG is unremarkable. He is nothing by mouth for stress testing this morning. No chest pain overnight. In the cardiac workup, he underwent CT of chest to rule out pulmonary embolism. Abnormal pulmonary findings which could be consistent with malignancy was noted however. Impression: 1. CHEST PAIN - nothing by mouth for stress testing this morning. Some atypical features to the pain's characteristics, and in the patient's ECG and cardiac biomarkers are unremarkable. However, given his significant tobacco use he is at at least intermediate risk for coronary artery disease. Continue PPI. Ordering echocardiogram this morning. 2. HYPERLIPIDEMIA - this is a new diagnosis. Statin therapy has been initiated. LDL 170. 3. ABNORMAL CT CHEST - Dr. Linder following. In his future, the lesions will require workup. Possibly bronchoscopy or transthoracic biopsy. However, we will first clear him from a cardiac standpoint. 4. HEADACHES -defer further workup for possible sources of this given his history to the hospitalist service. 5. TOBACCO USE - the merits and techniques of cessation have been addressed for greater than 5 minutes 6. DECREASED LEFT LOWER EXTREMITY PULSE - consider outpatient ABIs. 7. MARIJUANA USE - the merits of cessation of marijuana use was discussed for greater than 5 minutes. Exam (Progress Note) - Constitutional Vitals: Period Temp Pulse Resp BP Sys/Goldman Pulse Ox Last 24 Hr 97.0 F-99.7 F 60-91 16-20 96-134/56-78 92-97 Exam: General: Thin male. Pleasant and cooperative. Appears comfortable. HEENT: PERRL, normocephalic, atraumatic. Mucous membranes moist. No jaundice noted. Conjunctiva moist and clear, sclerae anicteric Neck: No JVD/HJR, no thyromegaly or lymphadenopathy noted. No carotid bruit appreciated Cardiac: Regular rate and rhythm. No murmur rub or gallop. Lungs: End-expiratory wheezes noted posteriorly. Not requiring oxygen. Abdomen: Soft, bowel sounds normoactive. Nontender and nondistended. No abdominal bruit or thrill noted. No masses noted. Musculoskeletal: No fluid collection. Decreased range of motion is noted. Extremities: No clubbing, cyanosis noted. No edema noted. Upper extremity pulses 2+. Lower extremity pulses 2+. Capillary refill less than 3 seconds. Skin: No unusual lesions or rashes. No skin breakdown appreciated. Neuro: Awake, alert and oriented 3. Moves all extremities well without hemiparesis or paralysis. No essential tremor is appreciated. Result/EKG - Labs CBC & BMP: 12/26/16 05:10 12/26/16 05:10 Lab Results: I have reviewed the past 24 hour labs Labs: Laboratory Results - last 24 hr 12/26/16 12/26/16 05:10 05:10 WBC 9.1 RBC 4.99 Hgb 15.0 Hct 45.2 MCV 90.6 MCH 30 MCHC 33.2 RDW 14.1 Plt Count 198 MPV 12.3 H Neut % (Auto) 48.0 Lymph % (Auto) 37.0 [place] % (Auto) 11.7 Eos % (Auto) 1.9 Baso % (Auto) 1.2 H Neut # (Auto) 4.4 Lymph # (Auto) 3.4 [place] # (Auto) 1.1 H Eos # (Auto) 0.2 Baso # (Auto) 0.1 Immature Gran % 0.2 Nucleated RBC % 0.0 Immature Gran # 0.02 Nucleated RBCs # 0.00 Sodium 143 Potassium 4.0 Chloride 105 Carbon Dioxide 31 Anion Gap 11.0 BUN 15 Creatinine 1.00 GFR Calculation 94 BUN/Creatinine Ratio 15.00 Glucose 86 Calculated Osmolality 284.0 Calcium 8.8 - Diagnostic Findings Procedure: Chest x-ray: report reviewed by me, CT - chest: report reviewed by me - EKG EKG results: interpreted by me EKG shows: sinus rhythm
--- NOTE | 2016-12-26 09:26 | Event Note ---
Due to gait instability, Lexiscan protocol was utilized. Tolerated without complaints of chest pain, heaviness or tightness. No significant ST-T changes noted. No arrhythmia noted. Now, patient is being routed to nuclear medicine for completion of final scan. Dr. Robertson to read, interpret and advise.
[2016-12-26] MEDS: PREGABALIN 100 MG CAPSULE PO SCH ×3 (09:28→21:05)
[2016-12-26] MEDS: PANTOPRAZOLE 40 MG TABLET PO SCH (09:28)
[2016-12-26] MEDS: BACLOFEN 10 MG TABLET PO SCH ×3 (09:28→21:03)
[2016-12-26] MEDS: traMADol 50 MG TABLET PO SCH ×3 (09:28→21:05)
[2016-12-26] MEDS: ASPIRIN EC 81 MG TABLET PO SCH (09:28)
--- NOTE | 2016-12-26 11:37 | Pulmonology Progress Note ---
Pulmonary - PN: Subj Interval history: Osbaldo Cordero, ANP-BC, GNP-BC, acting as scribe for Dr. Silvino Linder Mr. Mohan is a 61 year old male who was seen in initial pulmonary consultation on 12/25/16. At that time, our impressions were: 1. Chest pain of undetermined etiology 2. Tobacco abuse 3. Hyperlipidemia with an LDL of 170. High risk for heart disease 4. Bullous emphysema and probably COPD 5. 1.8 irregular homogeneous nodule at the apex of the left upper lung that abuts the pleura posteriorly. 0.6 cm right lung nodule near the minor fissure. Both nodules need to be watched. The patient is at risk for scar carcinoma. 6. 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 The patient was taken for a Lexiscan this morning. Those results are pending. The nurses reported that the patient had no chest pain or ST-T changes during the scan. We will follow-up the results when available. His breathing is stable. Medications have been reviewed. We made no changes today. Labs have been reviewed. White count is 9,100 with a normal differential; H&H 15.0/45.2; PLT count 198,000; creatinine 1.00, BUN 15, electrolytes are normal ; drug screen was positive for cannabinoids. Exam (Progress Note) - Constitutional Vitals: Period Temp Pulse Resp BP Sys/Goldman Pulse Ox Last 24 Hr 97.0 F-99.7 F 60-91 16-20 96-134/56-78 92-97 Exam: Chest is symmetrical and slightly hyperinflated with mild prolongation of expiration Heart no gallop Abd is nontender and nondistened; BS positive x 4 Ext with nothing to suggest acute DVT Psych oriented x 3 Neuro long tract motor function is intact Plan: Continue present treatment. Follow-up Lexiscan results when available. The lesion in the apex of the left lung is the lesion that is most suspicious. This will be hard to reach with bronchoscopy, but possible. This will probably also be difficult to reach with transthoracic biopsy, but could ask interventional radiology about the degree of difficulty. Results - Labs CBC & BMP: 12/26/16 05:10 12/26/16 05:10
--- NOTE | 2016-12-26 14:14 | Nuclear Medicine Report ---
CLINICAL SUMMARY: A 61-year-old man who is for ischemic screening. The patient was given a 0.4 mg dose of intravenous Lexiscan and roughly 30 seconds later was given a 30 mCi dose of Technetium complexed to Cardiolite. He underwent radionuclide scanning and this was compared to a rest scan obtained prior to walking after a 10-mCi dose of Technetium complexed to Ca rdiolite. Comparing stress and rest imaging, there appears to be inferobasal thinning, which is likely related to attenuation. No good evidence to suggest significant ischemia or scar could be noted from this perfusion study. Wall motion study demonstrates normal left ventricular systolic wall motion. Gated ejection fractio n is calculated to be in the 46% range. CONCLUSIONS: 1. GATED EJECTION FRACTION 46%. 2. NORMAL LEFT VENTRICULAR SYSTOLIC WALL MOTION. 3. PERFUSION STUDY WITH INFEROBASAL THINNING LIKELY RELATED TO ATTENUATION WITHOUT GOOD EVIDENCE TO SUGGEST SIGNIFICANT ISCHEMIA OR SCAR. This is a low-risk study. Procedure performed and interpreted at [facility] Department of Radiology. CC:
--- NOTE | 2016-12-26 17:14 | Hospitalist Progress Note ---
Assessment and Plan - Time spent with patient Time spent with patient: Greater than 30 minutes (1) Pulmonary nodule Status: Acute Assessment and plan: Appreciate Pulms assistance. Current Visit: Yes (2) Chest pain Status: Acute Assessment and plan: Awaiting results of stress test. Current Visit: Yes (3) Tobacco abuse counseling Status: Chronic Assessment and plan: Patient was counseled on tobacco abuse. Current Visit: Yes (4) Hyperlipidemia Status: Chronic Assessment and plan: We'll start Lipitor. Current Visit: Yes Hospitalist: Subjective Interval history: No complains, no overnight events. Exam - Constitutional Vitals: Period Temp Pulse Resp BP Sys/Goldman Pulse Ox Last 24 Hr 96.3 F-99.7 F 60-91 16-20 96-134/56-71 92-97 General appearance: no acute distress - Head Head exam: Present: normocephalic, atraumatic - Eye Eye exam: Present: EOMI Pupils: Present: VALE - ENT ENT exam: Present: normal exam - Neck Neck exam: Present: normal inspection - Respiratory Respiratory exam: Present: clear to auscultation bilaterally. Absent: rhonchi, wheezes - Cardiovascular Cardiovascular exam: Present: regular rate and rhythm. Absent: gallop, rubs, systolic murmur - GI/Abdominal GI/Abdominal exam: Present: normal bowel sounds, soft. Absent: distended, firm , guarding, tenderness, rebound - Extremities Exam Extremities exam: Present: normal inspection. Absent: calf tenderness, edema Results - Labs CBC & BMP: 12/26/16 05:10 12/26/16 05:10 Lab Results: I have reviewed the past 24 hour labs
--- NOTE | 2016-12-26 17:17 | ECHO Report ---
Silvino Mohan Exam Date: 12/26/2016 12:47 Referring Physician: Technologist: Rebekah Platt RDCS Age: 61 Ht (in): Wt (lb): Gender: M Exam Location: [facility] Echo Indications: Chest pain, unspecified, Hyperlipidemia, unspecified, Nicotine dependence, cigarettes, uncomplicated, Marijuana abuse, Headaches, Peripheral neuropathy, Pulmonary nodule, Abnormal CT chest BP: / HR: Rhythm: Sinus Technical Quality: IMPRESSIONS Left ventricular ejection fraction is estimated at 55 %. There is no clear regional wall motion abnormality. Grade I diastolic dysfunction Mild tricuspid insufficiency MEASUREMENTS (Male / Female) Normal Values 2D ECHO LV Diastolic Diameter PLAX 4.0 cm 4.2 - 5.9 / 3.9 - 5.3 cm LV Systolic Diameter PLAX 2.8 cm LV Fractional Shortening PLAX 29.9 % IVS Diastolic Thickness 0.9 cm 0.6 - 1.0 / 0.6 - 0.9 cm LVPW Diastolic Thickness 0.9 cm 0.6 - 1.0 / 0.6 - 0.9 cm RV Internal Dim ED PLAX 3.5 cm Aortic Root Diameter 3.1 cm LA Systolic Diameter LX 3.1 cm 3.0 - 4.0 / 2.7 - 3.8 cm FINDINGS Left Ventricle Normal left ventricular cavity size. Normal left ventricular wall thickness. Left ventricular ejection fraction is estimated at 55 %. There is no clear regional wall motion abnormality. Grade I diastolic dysfunction. Right Ventricle The right ventricle is normal in size and function. Right Atrium The right atrium is normal in size. Left Atrium The left atrium is normal in size. Mitral Valve Morphologically normal mitral valve without significant stenosis or prolapse. There is no mitral regurgitation. Aortic Valve Morphologically normal aortic valve without significant sclerosis or stenosis. There is no aortic regurgitation. Tricuspid Valve Morphologically normal tricuspid valve without significant stenosis or regurgitation. Pulmonary artery systolic pressure is normal. Pulmonic Valve Morphologically normal pulmonic valve without significant stenosis. There is no pulmonic regurgitation. Pericardium Normal pericardium without effusion. Aorta Normal ascending aorta dimension. Lisa Huerta (Electronically Signed) Final Date: 26 December 2016 17:15
[2016-12-26] MEDS: ZALEPLON 5 MG CAPSULE PO PRN (21:03)
[2016-12-26] MEDS: ENOXAPARIN 40 MG/0.4 ML SYRINGE SUBCUT SCH (21:03)
[2016-12-26] MEDS: ATORVASTATIN 40 MG TABLET PO SCH (21:04)
[2016-12-26] MEDS: AMITRIPTYLINE 50 MG TABLET PO SCH (21:05)
[2016-12-27 05:37] LABS: Basophils # 0.1 10*3/uL (0.0-0.2); Basophils % 1.2 % (0.0-0.8); Eosinophils # 0.2 10*3/uL (0.0-0.87); Eosinophils % 2.4 % (0.00-10.9); Hematocrit 45.3 VOL% (42.0-52.0); Hemoglobin 15.2 GM/DL (14.0-18.0); Immature Granulocytes % 0.1 %; Immature Granulocytes Absolute 0.01 #; Lymphocytes # 3.2 10*3/uL (1.4-4.0); Lymphocytes % 37.4 % (21.2-54.2); Mean Corpuscular HGB Conc 33.6 GM/DL (32-36); Mean Corpuscular Hemoglobin 31 PG (27-34); Mean Corpuscular Volume 90.8 FL (87-102); Mean Platelet Volume 12.3 FL (9.6-12.0); Monocytes % 11.4 % (1.7-12.7); Neutrophils # 4.1 10*3/uL (1.4-7.4); Neutrophils % 47.5 % (38.7-73.9); Platelet Count 182 T/CUMM (130-400); Red Blood Count 4.99 MC/CUMM (3.8-5.5); Red Cell Distribution Width 13.9 % (9.3-17.3); White Blood Count 8.6 T/CUMM (4-12)
[2016-12-27 06:20] LABS: Calcium 8.7 MG/DL (8.5-10.1); Osmolality,Calculated 285.8 MOS/KG (273-304); Potassium 3.9 MMOL/L (3.5-5.1)
[2016-12-27] MEDS: ASPIRIN EC 81 MG TABLET PO SCH (08:40)
[2016-12-27] MEDS: PANTOPRAZOLE 40 MG TABLET PO SCH (08:41)
[2016-12-27] MEDS: traMADol 50 MG TABLET PO SCH ×3 (08:41→20:11)
[2016-12-27] MEDS: PREGABALIN 100 MG CAPSULE PO SCH ×3 (08:41→20:10)
[2016-12-27] MEDS: BACLOFEN 10 MG TABLET PO SCH ×3 (08:41→20:10)
--- NOTE | 2016-12-27 10:23 | Cardiology Progress Note ---
Assessment and Plan - Time spent with patient Time spent with patient: Greater than 30 minutes (1) Marijuana abuse Status: Chronic Assessment and plan: SEE PLAN OF CARE LISTED BELOW Current Visit: Yes (2) Abnormal CT of the chest Status: Acute Assessment and plan: SEE PLAN OF CARE LISTED BELOW Current Visit: Yes (3) Frequent headaches Status: Chronic Assessment and plan: SEE PLAN OF CARE LISTED BELOW Current Visit: Yes (4) decreased pulses left lower extremity Status: Acute Assessment and plan: SEE PLAN OF CARE LISTED BELOW Current Visit: Yes (5) Chest pain Status: Acute Assessment and plan: SEE PLAN OF CARE LISTED BELOW Current Visit: Yes (6) Tobacco abuse counseling Status: Chronic Assessment and plan: SEE PLAN OF CARE LISTED BELOW Current Visit: Yes (7) Hyperlipidemia Status: Chronic Assessment and plan: SEE PLAN OF CARE LISTED BELOW Current Visit: Yes Cardiology - PN: Subj Interval history: Mr. Mohan is a 61 year old male without a prior cardiac history, admitted by Dr. Rose over the weekend. Risk factors significant for tobacco use, marijuana use, hyperlipidemia and family history of early coronary artery disease. He presented to the emergency department at [facility] 12/24/2016 with complaints of chest pain. His cardiac biomarkers are negative and EKG is unremarkable. Yesterday, he underwent nuclear stress testing and received favorable results. Echocardiogram reveals EF 55% without significant valvular abnormality. In the cardiac workup, he underwent CT of chest to rule out pulmonary embolism. Abnormal pulmonary findings which could be consistent with malignancy was noted however. Dr. Linder has been consulted regarding the abnormality of the CT and is planning possible biopsy to better identify and treat. Chest pain has improved. At this time, we will sign off as he has no active cardiac conditions. We are happy to be reconsulted as needed. Of note, patient was somewhat irate when I entered his routine at 1015 a.m. this morning. The lights were off, he was sleeping, it is very dark in his room as the curtains are closed. He felt like no one had been around to discuss anything regarding treatment for his lung condition "in days." I reiterated he had been seen by Dr. Linder as well as Dr. Norton yesterday and it was early in the morning. He did not remember these visits for a few minutes. He then apologized and reported he simply lost track of time. Impression: 1. CHEST PAIN - chest pain improved. Stress test revealed no evidence of reversible ischemia. Echocardiogram EF 55% without significant valvular abnormality. Cardiac biomarkers are negative and EKG is unremarkable. Continue treatment with PPI and workup of abnormal CT of chest. We will sign off. 2. HYPERLIPIDEMIA - this is a new diagnosis. Statin therapy has been initiated. LDL 170. 3. ABNORMAL CT CHEST - Dr. Linder following. In his future, the lesions will require workup. Possibly bronchoscopy or transthoracic biopsy. He is cleared from a cardiac standpoint for further workup as needed. 4. HEADACHES - improved 5. TOBACCO USE - the merits and techniques of cessation have been addressed for greater than 5 minutes 6. DECREASED LEFT LOWER EXTREMITY PULSE - consider outpatient ABIs. 7. MARIJUANA USE - the merits of cessation of marijuana use was discussed for greater than 5 minutes. Exam (Progress Note) - Constitutional Vitals: Period Temp Pulse Resp BP Sys/Goldman Pulse Ox Last 24 Hr 96.2 F-97.9 F 61-84 16-20 104-133/63-88 94-98 Exam: General: Thin male. Pleasant and cooperative. Appears comfortable. HEENT: PERRL, normocephalic, atraumatic. Mucous membranes moist. No jaundice noted. Conjunctiva moist and clear, sclerae anicteric Neck: No JVD/HJR, no thyromegaly or lymphadenopathy noted. No carotid bruit appreciated Cardiac: Regular rate and rhythm. No murmur rub or gallop. Lungs: End-expiratory wheezes noted posteriorly. Not requiring oxygen. Abdomen: Soft, bowel sounds normoactive. Nontender and nondistended. No abdominal bruit or thrill noted. No masses noted. Musculoskeletal: No fluid collection. Decreased range of motion is noted. Extremities: No clubbing, cyanosis noted. No edema noted. Upper extremity pulses 2+. Lower extremity pulses 2+. Capillary refill less than 3 seconds. Skin: No unusual lesions or rashes. No skin breakdown appreciated. Neuro: Awake, alert and oriented 3. Moves all extremities well without hemiparesis or paralysis. No essential tremor is appreciated. Result/EKG - Labs CBC & BMP: 12/27/16 05:14 12/27/16 05:14 Lab Results: I have reviewed the past 24 hour labs Labs: Laboratory Results - last 24 hr 02/28/17 02/28/17 05:14 05:14 WBC 8.6 RBC 4.99 Hgb 15.2 Hct 45.3 MCV 90.8 MCH 31 MCHC 33.6 RDW 13.9 Plt Count 182 MPV 12.3 H Neut % (Auto) 47.5 Lymph % (Auto) 37.4 [place] % (Auto) 11.4 Eos % (Auto) 2.4 Baso % (Auto) 1.2 H Neut # (Auto) 4.1 Lymph # (Auto) 3.2 [place] # (Auto) 1.0 H Eos # (Auto) 0.2 Baso # (Auto) 0.1 Immature Gran % 0.1 Nucleated RBC % 0.0 Immature Gran # 0.01 Nucleated RBCs # 0.00 Sodium 144 Potassium 3.9 Chloride 106 Carbon Dioxide 32 Anion Gap 9.9 BUN 16 Creatinine 1.10 GFR Calculation 83 BUN/Creatinine Ratio 14.00 Glucose 89 Calculated Osmolality 285.8 Calcium 8.7 - EKG EKG results: interpreted by [place] EKG shows: sinus rhythm
--- NOTE | 2016-12-27 12:56 | Pulmonology Progress Note ---
Pulmonary - PN: Subj Interval history: Mr. Mohan is a 61 year old male who was seen in initial pulmonary consultation on 12/25/16. At that time, my impressions were: 1. Chest pain of undetermined etiology 2. Tobacco abuse 3. Hyperlipidemia with an LDL of 170. High risk for heart disease 4. Bullous emphysema and probably COPD 5. 1.8 centimeter irregular homogeneous nodule at the apex of the left upper lung that abuts the pleura posteriorly. 0.6 cm right lung nodule near the minor fissure. Both nodules need to be watched. The patient is at risk for scar carcinoma. 6. 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 The patient was taken for a Lexiscan this morning. Those results are pending. The nurses reported that the patient had no chest pain or ST-T changes during the scan. We will follow-up the results when available. His breathing is stable. Medications have been reviewed. We made no changes today. Labs have been reviewed. White count is 9,100 with a normal differential; H&H 15.0/45.2; PLT count 198,000; creatinine 1.00, BUN 15, electrolytes are normal ; drug screen was positive for cannabinoids. 12/27/2016. Tested showing that this patient does not have cardiac angina. A 1.8 cm mass at the left apex needs diagnostic procedure. I have consulted interventional radiology for transthoracic biopsy. This area has a lot of bones and if is not safe and assessable for them and I can try to brushed and biopsied this area under fluoroscopic guidance. There is a distinct possibility that I will not be able to enter this lesion. As the reason I have asked interventional radiology to evaluate patient. There is been discussed with the case patient. He was agreeable to either method. Osbaldo Cordero nurse practitioner was present. Physical exam. Vital signs. See below Psychiatric. Oriented 3 Pupils irises sclera conjunctiva eyelids are normal face is symmetrical. Mouth and tongue are normal Neck. Symmetrical with no meningismus Lymphatics no submandibular cervical supraclavicular adenopathy Chest. Loose large airway congestion Heart. No gallop Abdomen. Nontender. Positive bowel sounds Extremities no edema and no evidence of clubbing. Neurologic. Cranial nerves are intact. Patient moves all 4 extremities. The remainder of the physical exam is negative. Plan. 1. See my note from today's date above. Consult interventional radiology. If this is not a lesion they can reach I will evaluate the patient with fiberoptic bronchoscopy under fluoroscopy. Exam (Progress Note) - Constitutional Vitals: Period Temp Pulse Resp BP Sys/Goldman Pulse Ox Last 24 Hr 96.2 F-97.9 F 61-84 16-20 106-133/63-88 94-98 Results - Labs CBC & BMP: 12/27/16 05:14 12/27/16 05:14
--- NOTE | 2016-12-27 16:10 | Inventional Radiology Consult ---
Assessment and Plan - Time spent with patient Time spent with patient: Less than 30 minutes (1) Pulmonary nodule Problem details: tobacco abuse history, worrisome for malignancy Status: Acute Assessment and plan: plan for CT guided biopsy tomorrow Current Visit: Yes IR Consult - Data of Consult Patient: new to practice Consult date: 12/27/16 Requesting Physician: Silvino Linder - Consult Narrative Reason for consult: Left upper lobe soft tissue nodule, tobacco abuse history History of present illness: Marques is a 61 year old M Long-standing history of tobacco abuse and severe emphysematous changes. Patient was initially admitted for chest pain workup, which has been found to be negative. There is no plantar cardiac intervention at this time. During the workup, the left upper lobe soft tissue nodule with minimal spiculated margins was discovered. Currently, patient has no complaints of chest pain or shortness of breath. No history of heart attack or stroke. 50+ pack year history of smoking. Review of systems otherwise negative. - Home Medications and Allergies Home Medications: Home Medications Medication Instructions Recorded Confirmed Type Amitriptyline [Elavil] 50 mg PO BEDTIME 12/23/16 12/23/16 History Baclofen Tab [Lioresal] 10 mg PO TID 12/23/16 12/23/16 History Pregabalin [Lyrica] 100 mg PO TID 12/23/16 12/23/16 History Tramadol HCl [Tramadol Tab] 50 mg PO TID 12/23/16 12/23/16 History Allergies/Adverse Reactions: Allergies Allergy/AdvReac Type Severity Reaction Status Date / Time Buspirone [From BuSpar] Allergy Unknown/Unable Verified 12/23/16 14:07 to obtain 12 point system: reviewed and no additional remarkable complaints except as stated Medical,Surgical,& Family Hx - Medical History Psychological: History of: Depression Neurology: History of: Peripheral Neuropathy Musculoskeletal: History of: Back/Neck Problems - Family History Family History: Reports;: Family Cancer, Family Diabetes, Family Heart Disease, Family Hematology, Family Hypertension, Family Stroke - Social History Smoking Status: Current every day smoker Frequency of Alcohol Use: None Type of Drug Use: Marijuana Exam - Labs CBC & BMP: 12/27/16 05:14 12/27/16 05:14 Lab Results: I have reviewed the past 24 hour labs Labs: INR 1.0 12/23/16 14:21 Image Studies: CT PE protocol. - Constitutional Vitals: Period Temp Pulse Resp BP Sys/Goldman Pulse Ox Last 24 Hr 96.2 F-98.6 F 61-84 16-20 106-133/63-88 94-98 General appearance: under weight - Eye Eye exam: Present: EOMI - Respiratory Respiratory exam: Present: clear to auscultation bilaterally, wheezes ( prolonged expiratory) - Cardiovascular Cardiovascular exam: Present: regular rate and rhythm - GI/Abdominal GI/Abdominal exam: Present: normal bowel sounds - Neurological Exam Neurological exam: Present: alert, oriented X3 - Psychiatric Psychiatric exam: Present: normal affect, normal mood - Skin Skin exam: Present: normal color, dry
--- NOTE | 2016-12-27 16:36 | Hospitalist Progress Note ---
Assessment and Plan - Time spent with patient Time spent with patient: Greater than 30 minutes (1) Pulmonary nodule Problem details: tobacco abuse history, worrisome for malignancy Status: Acute Assessment and plan: CT-guided biopsy tomorrow. Current Visit: Yes (2) Chest pain Status: Acute Assessment and plan: Workup complete. Unremarkable. Current Visit: Yes (3) Tobacco abuse counseling Status: Chronic Assessment and plan: Patient was counseled on tobacco abuse. Current Visit: Yes (4) Hyperlipidemia Status: Chronic Assessment and plan: We'll start Lipitor. Current Visit: Yes Hospitalist: Subjective Interval history: No complaints, no events. Exam - Constitutional Vitals: Period Temp Pulse Resp BP Sys/Goldman Pulse Ox Last 24 Hr 98.6 F 61 20 123/87 94 General appearance: normal weight, no acute distress - Head Head exam: Present: normocephalic, atraumatic - Eye Eye exam: Present: EOMI Pupils: Present: VALE - ENT ENT exam: Present: normal exam - Neck Neck exam: Present: normal inspection - Respiratory Respiratory exam: Present: clear to auscultation bilaterally. Absent: rhonchi, wheezes - Cardiovascular Cardiovascular exam: Present: regular rate and rhythm. Absent: gallop, rubs, systolic murmur - GI/Abdominal GI/Abdominal exam: Present: normal bowel sounds, soft. Absent: distended, firm , guarding, tenderness, rebound - Extremities Exam Extremities exam: Present: normal inspection. Absent: calf tenderness, edema Results - Labs CBC & BMP: 12/27/16 05:14 12/27/16 05:14 Lab Results: I have reviewed the past 24 hour labs
[2016-12-27] MEDS: ZALEPLON 5 MG CAPSULE PO PRN (20:11)
[2016-12-27] MEDS: AMITRIPTYLINE 50 MG TABLET PO SCH (20:11)
[2016-12-27] MEDS: ATORVASTATIN 40 MG TABLET PO SCH (20:12)
[2016-12-28] MEDS ORDERED: DIAZEPAM 5 MG TABLET PO STA (09:13)
[2016-12-28] MEDS ORDERED: MORPHINE 2 MG/1 ML SYRINGE ONE (10:38)
[2016-12-28] MEDS: MORPHINE 2 MG/1 ML SYRINGE IV PRN ×2 (10:40→20:38)
--- NOTE | 2016-12-28 10:55 | Pulmonology Progress Note ---
Pulmonary - PN: Subj Interval history: Patient not seen today. Agree with interventional radiology plans for biopsy. Exam (Progress Note) - Constitutional Vitals: Period Temp Pulse Resp BP Sys/Goldman Pulse Ox Last 24 Hr 96.9 F-98.6 F 56-79 14-20 93-163/53-95 90-100 Results - Labs CBC & BMP: 12/27/16 05:14 12/27/16 05:14
--- NOTE | 2016-12-28 11:07 | Post Interventional Procedure ---
Pre-op diagnosis: left upper lobe lung lesion suspicious for malignancy Post-op diagnosis: same Procedure: CT guided lung lesion biopsy and chest tube placement Contrast: none Flouroscopy: none Radiologist: Nicolas Barajas Anesthesia: conscious sedation Medications: 2 mg IV Morphine Total Sedation Time: 30 min Specimens: other (three 20 ga core samples sent) Estimated blood loss: minimal Complications: other (pneumothorax) Condition: stable Description/Findings: The left upper lobe lesion was targeted for biopsy. Immediately upon entering the pleural space, the patient developed a moderate to large pneumothorax. The biopsy was postponed until an 8 [place]i pigtail chest tube could be placed into the thoracic cavity and connected to wall suction. The pneumothorax was nearly completely evacuated and the biopsy was present. A 19-gauge coaxial needle was advanced into the lesion with intermittent CT guidance. Three 20-gauge core biopsy samples were obtained and submitted in formalin for pathologic analysis. Patient tolerated the procedure well and left the procedure area in stable condition. Assessment and Plan - Time spent with patient Time spent with patient: Greater than 30 minutes (1) Pulmonary nodule Problem details: tobacco abuse history, worrisome for malignancy Status: Acute Assessment and plan: plan for CT guided biopsy tomorrow Current Visit: Yes
--- NOTE | 2016-12-28 11:34 | XRay Report ---
Exam: XR chest post procedure Date: 12/28/2016 1056 AM Indication: Chest tube post lung biopsy Comparison: 12/23/2016 Technical: Inspiration and expiration imaging Findings: A pigtail catheter has been placed in the left chest with fairly large left pneumothorax present. Some underlying minimal atelectatic change. The heart is normal in size. Oxygen tubing superimposes exam. Impression: 1. Large left apical pneumothorax with interval placement of pigtail catheter which superimposes the left apex. 2. Atelectatic change present in the left base. 3. The mass lesion demonstrated on CT imaging left lateral apex is poorly identified on routine radiograph Critical test report called to Dr. Barajas PROCEDURE INTERPRETED AT [facility] DEPARTMENT OF RADIOLOGY Final Report Signed by: Dr. Silvino Barraza
[2016-12-28] MEDS: BACLOFEN 10 MG TABLET PO SCH ×3 (12:14→20:36)
[2016-12-28] MEDS: PREGABALIN 100 MG CAPSULE PO SCH ×3 (12:15→20:36)
[2016-12-28] MEDS: PANTOPRAZOLE 40 MG TABLET PO SCH (12:15)
[2016-12-28] MEDS: traMADol 50 MG TABLET PO SCH ×3 (12:15→20:43)
--- NOTE | 2016-12-28 12:41 | CT Report ---
CT biopsy lung wo core LT, CT guided thoracentesis cath Clinical Information: Left upper lobe spiculated nodule concerning for malignancy. Long history of tobacco use. Physician: Dr. Barajas Technique: Informed consent was obtained from the patient. Full explanation of the nature of the procedure, alternatives and risks were discussed, including risks of bleeding, infection and potential inability to diagnose with needle technique. Adjacent vascular and organ injury were also fully discussed. He expressed understanding and a desire to proceed. Formal timeouts were performed, per protocol. Monitored conscious sedation was achieved with the assistance of dedicated nursing staff as recorded in the patient records. A total of 30 minutes [id number] time was spent with the patient for the procedure. The left upper lobe spiculated soft tissue lesion was targeted for biopsy. With needle positioning, immediately upon entering the thoracic cavity, the patient developed a moderate to large pneumothorax. The biopsy was temporarily postponed. An 8 [place] Island[place] pigtail drainage catheter was then placed into the thoracic cavity and placed to suction drainage and the pneumothorax was nearly entirely evacuated. Attention was then turned back toward the lesion biopsy. CT guided localization of the target lesion was performed. Under real time guidance, 3 total core biopsies were obtained using a 20-gauge system and submitted in formalin. Follow-up imaging demonstrated no other significant complication. The chest tube is noted in position with the pneumothorax nearly entirely evacuated. Estimated blood loss less than 5 cc. Conclusion: Technically successful CT guided core biopsy as performed above Technically successful placement of a pigtail chest tube for pneumothorax. PROCEDURE INTERPRETED AT [facility] DEPARTMENT OF RADIOLOGY Final Report Signed by: Nicolas Barajas
--- NOTE | 2016-12-28 13:18 | XRay Report ---
Exam: XR chest inspiration expiration Date: 12/28/2016 12:15 PM Comparison: 12/28/2016 Indication: Left chest tube, pneumothorax Technique:[Portable AP sitting inspiration and expiration chest] Findings: The heart remains normal in size with stable left pleural catheter. Significant reduction in the size of the left pneumothorax. Esophagus there is a residual very small right apical pneumothorax. Residual atelectasis with stable left apical lung mass. The mediastinum and osseous structures are unchanged in appearance. Impression: Bullous emphysema with stable left apical mass. Left pleural catheter is stable position with significant reduction in the size of the left pneumothorax. Probable residual small apical pneumothorax with minimal atelectasis. PROCEDURE INTERPRETED AT [facility] DEPARTMENT OF RADIOLOGY Final Report Signed by: Dr. Ashwini Bryant
--- NOTE | 2016-12-28 14:57 | Hospitalist Progress Note ---
Assessment and Plan (1) Pneumothorax of left lung after biopsy Status: Acute Assessment and plan: Chest tube in place Current Visit: Yes (2) Pulmonary nodule Problem details: tobacco abuse history, worrisome for malignancy Status: Acute Assessment and plan: Status post CT-guided biopsy today Current Visit: Yes (3) Hyperlipidemia Status: Chronic Assessment and plan: Continue Lipitor Current Visit: Yes Hospitalist: Subjective Interval history: Patient seen today after procedure. Denies current pain. Exam - Constitutional Vitals: Period Temp Pulse Resp BP Sys/Goldman Pulse Ox Last 24 Hr 96.9 F-98.6 F 56-79 14-20 93-166/53-95 90-100 General appearance: no acute distress - Head Head exam: Present: normocephalic, atraumatic - Eye Eye exam: Present: EOMI. Absent: periorbital swelling, scleral icterus Pupils: Present: VALE - ENT ENT exam: Present: normal exam, normal oropharynx - Neck Neck exam: Present: normal inspection - Respiratory Respiratory exam: Present: clear to auscultation bilaterally - Cardiovascular Cardiovascular exam: Present: regular rate and rhythm - GI/Abdominal GI/Abdominal exam: Present: normal bowel sounds, soft. Absent: distended, rebound - Extremities Exam Extremities exam: Present: normal inspection, full ROM - Back Exam Back exam: Present: normal inspection - Neurological Exam Neurological exam: Present: alert, oriented X3 - Psychiatric Psychiatric exam: Present: normal affect, normal mood - Skin Skin exam: Present: warm, intact Results - Labs CBC & BMP: 12/27/16 05:14 12/27/16 05:14
[2016-12-28] MEDS: AMITRIPTYLINE 50 MG TABLET PO SCH (20:36)
[2016-12-28] MEDS: ATORVASTATIN 40 MG TABLET PO SCH (20:36)
[2016-12-28] MEDS: ONDANSETRON 4 MG/2 ML VIAL IV PRN (20:38)
[2016-12-29] MEDS: ZALEPLON 5 MG CAPSULE PO PRN ×2 (01:39→21:19)
[2016-12-29] MEDS: ONDANSETRON 4 MG/2 ML VIAL IV PRN (04:44)
[2016-12-29] MEDS: MORPHINE 2 MG/1 ML SYRINGE IV PRN ×2 (04:46→21:24)
[2016-12-29 06:54] LABS: Basophils # 0.1 10*3/uL (0.0-0.2); Basophils % 1.1 % (0.0-0.8); Eosinophils # 0.2 10*3/uL (0.0-0.87); Eosinophils % 2.3 % (0.00-10.9); Hematocrit 44.6 VOL% (42.0-52.0); Hemoglobin 14.7 GM/DL (14.0-18.0); Immature Granulocytes % 0.2 %; Immature Granulocytes Absolute 0.02 #; Lymphocytes # 2.9 10*3/uL (1.4-4.0); Lymphocytes % 29.4 % (21.2-54.2); Mean Corpuscular Hemoglobin 30 PG (27-34); Mean Corpuscular Volume 91.8 FL (87-102); Mean Platelet Volume 11.9 FL (9.6-12.0); Monocytes % 10.4 % (1.7-12.7); Neutrophils # 5.6 10*3/uL (1.4-7.4); Neutrophils % 56.6 % (38.7-73.9); Platelet Count 176 T/CUMM (130-400); Red Blood Count 4.86 MC/CUMM (3.8-5.5); Red Cell Distribution Width 13.5 % (9.3-17.3); White Blood Count 9.9 T/CUMM (4-12)
--- NOTE | 2016-12-29 08:41 | Hospitalist Progress Note ---
Assessment and Plan (1) Pneumothorax of left lung after biopsy Status: Acute Assessment and plan: Chest tube placed 12/28/16 Current Visit: Yes (2) Pulmonary nodule Problem details: tobacco abuse history, worrisome for malignancy Status: Acute Assessment and plan: Status post CT-guided biopsy 12/28/16 F/u results Current Visit: Yes (3) Hyperlipidemia Status: Chronic Assessment and plan: Continue Lipitor Current Visit: Yes Hospitalist: Subjective Interval history: No acute events overnight. Reports some pain from chest tube placement, but relieved with pain medications. Exam - Constitutional Vitals: Period Temp Pulse Resp BP Sys/Goldman Pulse Ox Last 24 Hr 96.4 F-98.7 F 61-79 14-20 100-166/57-95 90-100 General appearance: normal weight - Head Head exam: Present: normocephalic, atraumatic - Eye Eye exam: Present: EOMI Pupils: Present: VALE - ENT ENT exam: Present: normal exam, normal oropharynx - Neck Neck exam: Present: normal inspection. Absent: lymphadenopathy, tenderness - Respiratory Respiratory exam: Present: decreased breath sounds - Cardiovascular Cardiovascular exam: Present: regular rate and rhythm - GI/Abdominal GI/Abdominal exam: Present: normal bowel sounds, soft - Extremities Exam Extremities exam: Present: normal inspection - Back Exam Back exam: Present: normal inspection - Neurological Exam Neurological exam: Present: alert, oriented X3 - Psychiatric Psychiatric exam: Present: normal affect, normal mood - Skin Skin exam: Present: warm, intact Results - Labs CBC & BMP: 12/29/16 06:38 12/27/16 05:14
[2016-12-29] MEDS: traMADol 50 MG TABLET PO SCH ×3 (09:00→21:19)
[2016-12-29] MEDS: BACLOFEN 10 MG TABLET PO SCH ×3 (09:00→21:19)
[2016-12-29] MEDS: PREGABALIN 100 MG CAPSULE PO SCH ×3 (09:01→21:19)
[2016-12-29] MEDS: PANTOPRAZOLE 40 MG TABLET PO SCH (09:01)
--- NOTE | 2016-12-29 11:13 | XRay Report ---
Exam: XR chest inspiration expiration Date: 12/29/2016 10:45 AM Comparison: 12/28/2016 Indication: Pneumothorax, left chest tube Technique:[Portable AP inspiration and expiration chest] Findings: The heart remains normal in size with stable left pleural catheter. Residual left apical mass with very small left apical pneumothorax. Residual atelectasis. Stable mediastinum and osseous structures. Impression: Stable left pleural catheter. Persistent left apical mass and very small left apical pneumothorax. PROCEDURE INTERPRETED AT [facility] DEPARTMENT OF RADIOLOGY Final Report Signed by: Dr. Ashwini Bryant
--- NOTE | 2016-12-29 12:39 | Pulmonology Progress Note ---
Pulmonary - PN: Subj Interval history: Osbaldo Cordero, ANP-BC, GNP-BC, acting as scribe for Dr. Silvino Linder The patient was not seen today. We are awaiting the results from the needle biopsy. Exam (Progress Note) - Constitutional Vitals: Period Temp Pulse Resp BP Sys/Goldman Pulse Ox Last 24 Hr 96.4 F-98.7 F 64-78 16-20 100-137/64-72 90-99 Results - Labs CBC & BMP: 12/29/16 06:38 12/27/16 05:14
--- NOTE | 2016-12-29 15:47 | XRay Report ---
Exam: XR chest inspiration expiratio Date: 12/29/2016 3:00 PM Comparison: None Indication: Chest tube clamped, possible discharge after chest x-ray Technique:[PA inspiration expiration chest] Findings: The heart remains normal in size and stable left pleural catheter. Residual left apical mass with no definite residual pneumothorax. The lungs remain overexpanded with decreased atelectasis. Stable mediastinum and osseous structures. Impression: Stable left pleural catheter and left apical mass. No definite residual pneumothorax. The lungs remain overexpanded with reduced atelectasis. PROCEDURE INTERPRETED AT [facility] DEPARTMENT OF RADIOLOGY Final Report Signed by: Dr. Ashwini Bryant
--- NOTE | 2016-12-29 17:18 | XRay Report ---
Referring Physician: April Reynolds MD Exam: XR chest post procedure Date: December 29, 2016 at 3:55 PM Reason: Post chest tube removal Comparison: Chest inspiration expiration December 29, 2016 at 3:30 PM Findings: The cardiac silhouette is normal in size. An irregular opacity is again seen at the left lung apex and may represent a neoplastic process. There may be a small pneumothorax at the left lung apex, and a follow-up chest x-ray is recommended. No definite pleural fluid is identified. The osseous structures appear stable. Impression: There has been interval removal of the previously seen left pleural catheter. There may be a small pneumothorax at the left lung apex, and a follow chest x-ray is recommended. Findings and recommendations were discussed with the patient's nurse on [facility] on December 29, 2016 at 5:15 p.m. PROCEDURE INTERPRETED AT [facility] DEPARTMENT OF RADIOLOGY Final Report Signed by: Dr. Dixon Davidson
--- NOTE | 2016-12-29 19:02 | Event Note ---
Patient did will with clamping of the chest tube and it was removed without issues this afternoon. The post removal CXR shows no PTX. Awaiting biopsy results. Thank you for the consult.
--- NOTE | 2016-12-29 21:16 | XRay Report ---
Referring Physician: Robert Clinton Exam: XR chest 1V Date: December 29, 2016 at 5:11 PM Reason: Possible left pneumothorax, status post chest tube removal Comparison: Chest post procedure December 29, 2016 at 3:55 PM Findings: The cardiac silhouette is normal in size. An irregular opacity is again seen the left lung apex and could represent a neoplastic process. No pleural effusion or definite pneumothorax is identified. No acute osseous process is seen. Impression: The patient is status post left lung biopsy and removal of a left chest tube. No pneumothorax is identified. PROCEDURE INTERPRETED AT [facility] DEPARTMENT OF RADIOLOGY Final Report Signed by: Dr. Dixon Davidson
[2016-12-29] MEDS: AMITRIPTYLINE 50 MG TABLET PO SCH (21:19)
[2016-12-29] MEDS: ATORVASTATIN 40 MG TABLET PO SCH (21:19)
[2016-12-30] MEDS: PREGABALIN 100 MG CAPSULE PO SCH ×3 (08:10→21:00)
[2016-12-30] MEDS: traMADol 50 MG TABLET PO SCH ×3 (08:10→20:59)
[2016-12-30] MEDS: ASPIRIN EC 81 MG TABLET PO SCH (08:10)
[2016-12-30] MEDS: PANTOPRAZOLE 40 MG TABLET PO SCH (08:11)
[2016-12-30] MEDS: BACLOFEN 10 MG TABLET PO SCH ×3 (08:11→20:59)
--- NOTE | 2016-12-30 11:06 | Pulmonology Progress Note ---
Pulmonary - PN: Subj Interval history: This is a 61-year-old white male smoker who is admitted for chest pain which turned out to be noncardiac. The patient has a left lung apical mass suspicious for carcinoma. He had a biopsy by interventional radiologist. He had a small pneumothorax that required a chest tube which is now out. His chest x-ray done late last night looks fine. I did not see this patient today. We are awaiting his biopsy results. If they are negative he can go home and be followed by chest x-ray with his home doctor. If they are positive for cancer he will need an oncology consultation. Exam (Progress Note) - Constitutional Vitals: Period Temp Pulse Resp BP Sys/Goldman Pulse Ox Last 24 Hr 97.0 F-98.3 F 60-75 16-18 86-125/57-77 94-98 Results - Labs CBC & BMP: 12/29/16 06:38 12/27/16 05:14 Specialty Discharge - Follow Up or Referrals Follow up with: Shayne Chu MD [Physician] - (Follow up appointment scheduled with Dr. Chu for December at 0745.)
--- NOTE | 2016-12-30 13:12 | Hospitalist Progress Note ---
Assessment and Plan (1) Pneumothorax of left lung after biopsy Status: Resolved Assessment and plan: Chest tube removed yesterday Resolved Current Visit: Yes (2) Pulmonary nodule Problem details: tobacco abuse history, worrisome for malignancy Status: Acute Assessment and plan: Status post CT-guided biopsy 12/28/16 F/u results Current Visit: Yes (3) Hyperlipidemia Status: Chronic Assessment and plan: Continue Lipitor Current Visit: Yes Hospitalist: Subjective Interval history: Pt anxious to go home. No complaints otherwise. Chest tube has been removed. Doing well. Exam - Constitutional Vitals: Period Temp Pulse Resp BP Sys/Goldman Pulse Ox Last 24 Hr 97.0 F-98.3 F 60-75 16-18 86-125/57-77 93-97 General appearance: normal weight - Head Head exam: Present: normocephalic, atraumatic - Eye Eye exam: Present: EOMI Pupils: Present: VALE - ENT ENT exam: Present: normal exam - Neck Neck exam: Present: normal inspection - Respiratory Respiratory exam: Present: clear to auscultation bilaterally - Cardiovascular Cardiovascular exam: Present: regular rate and rhythm - GI/Abdominal GI/Abdominal exam: Present: normal bowel sounds, soft - Extremities Exam Extremities exam: Present: normal inspection - Back Exam Back exam: Present: normal inspection - Neurological Exam Neurological exam: Present: alert, oriented X3 - Psychiatric Psychiatric exam: Present: normal affect, normal mood - Skin Skin exam: Present: warm, intact Results - Labs CBC & BMP: 12/29/16 06:38 12/27/16 05:14 Specialty Discharge - Follow Up or Referrals Follow up with: Shayne Chu MD [Physician] - (Follow up appointment scheduled with Dr. Chu for December at 0745.)
[2016-12-30] MEDS: ATORVASTATIN 40 MG TABLET PO SCH (20:59)
[2016-12-30] MEDS: AMITRIPTYLINE 50 MG TABLET PO SCH (21:00)
[2016-12-30] MEDS: ZALEPLON 5 MG CAPSULE PO PRN (21:00)
[2016-12-30] MEDS: ENOXAPARIN 40 MG/0.4 ML SYRINGE SUBCUT SCH (21:00)
[2016-12-31] MEDS: ASPIRIN EC 81 MG TABLET PO SCH (08:30)
[2016-12-31] MEDS: BACLOFEN 10 MG TABLET PO SCH (08:30)
[2016-12-31] MEDS: PANTOPRAZOLE 40 MG TABLET PO SCH (08:30)
[2016-12-31] MEDS: PREGABALIN 100 MG CAPSULE PO SCH (08:31)
[2016-12-31] MEDS: traMADol 50 MG TABLET PO SCH (08:31)
--- NOTE | 2016-12-31 08:57 | Pulmonology Progress Note ---
Pulmonary - PN: Subj Interval history: This patient had a needle biopsy of lung lesion. Result is not out as yet. May have been sent for special studies. From pulmonary standpoint he could be discharged and wait on the reports at home. I have told him to call Dr. Linder's office Monday afternoon to run down the report. His family doctor is Dr. Zapien in [place]. Exam (Progress Note) - Constitutional Vitals: Period Temp Pulse Resp BP Sys/Goldman Pulse Ox Last 24 Hr 96.8 F-98.6 F 62-73 16-20 99-117/60-69 89-98 Exam: Patient's alert oriented vital signs normal. Pupils react to light. Throat is clear. Neck supple no bruits. Chest is clear equal breath sounds. Heart normal rate and rhythm no murmurs. Abdomen soft no masses. Extremities no clubbing cyanosis edema. Results - Labs CBC & BMP: 12/29/16 06:38 12/27/16 05:14 Lab Results: I have reviewed the past 24 hour labs Assessment and Plan (1) Pulmonary nodule Problem details: tobacco abuse history, worrisome for malignancy Status: Acute Assessment and plan: Discussed with him that the results are not back yet. Not sure when they will be back yet. Advised him to call Dr. Linder on Monday afternoon to see if he can run the report down. It may have been sent for special studies. Current Visit: Yes Specialty Discharge - Follow Up or Referrals Follow up with: Shayne Chu MD [Physician] - (Follow up appointment scheduled with Dr. Chu for December at 0745.)
--- NOTE | 2016-12-31 11:24 | Discharge Summary ---
Hospital Course - Hospital Course Hospital Course: 61 y/o WM admitted with chest pain. Cardiac work-up including stress testing was negative. He was diagnosed with hyperlipidemia and started on therapy. Patient had a CT chest performed which showed abnormal nodules. Interventional radiology performed CT guided biopsy of this nodule. During the procedure patient had a left pneumothorax requiring a chest tube for a short time. Patient is now stable and ready for discharge. He has been informed to call Monday for his test results. - Time spent with patient Time with patient DS: Less than 30 minutes Diagnosis - Discharge Diagnosis (1) Pneumothorax of left lung after biopsy Status: Resolved (2) Pulmonary nodule Status: Acute (3) Hyperlipidemia Status: Chronic Specialty Discharge - Follow Up or Referrals Follow up with: Shayne Chu MD [Physician] - (Follow up appointment scheduled with Dr. Chu for December at 0745.) Discharge Plan - Discharge Data Condition at Discharge: Stable Discharge Diet: low fat, low cholesterol Activity: resume usual activities as tolerated Hygiene: no restrictions Weight Bearing at Discharge: full weight bearing Driving: no restrictions Contact your physician if you experience:: fever over 101, Redness or swelling, Bleeding - Discharge Medications New Atorvastatin [Lipitor] 40 mg PO BEDTIME #30 tablet Continue Baclofen Tab [Lioresal] 10 mg PO TID Pregabalin [Lyrica] 100 mg PO TID Tramadol HCl [Tramadol Tab] 50 mg PO TID Amitriptyline [Elavil] 50 mg PO BEDTIME - Follow Up or Referral Follow Up: Shayne Chu MD [Physician] - (Follow up appointment scheduled with Dr. Chu for December at 0745.) - Forms/Instructions Exam - Constitutional Vitals: Period Temp Pulse Resp BP Sys/Goldman Pulse Ox Last 24 Hr 96.8 F-98.6 F 62-73 16-20 99-117/60-69 89-98 General appearance: normal weight - Head Head exam: Present: normocephalic, atraumatic - Eye Eye exam: Present: EOMI Pupils: Present: VALE - ENT ENT exam: Present: normal exam - Neck Neck exam: Present: normal inspection - Respiratory Respiratory exam: Present: clear to auscultation bilaterally - Cardiovascular Cardiovascular exam: Present: regular rate and rhythm - GI/Abdominal GI/Abdominal exam: Present: normal bowel sounds, soft - Extremities Exam Extremities exam: Present: normal inspection - Back Exam Back exam: Present: normal inspection - Neurological Exam Neurological exam: Present: alert, oriented X3 - Psychiatric Psychiatric exam: Present: normal affect, normal mood - Skin Skin exam: Present: normal color, intact Discharge Results Procedures and tests throughout hospitalization: CT guided biopsy of lung nodule DS: Provider Date of admission: 12/27/16 15:48 Primary care physician: . No PCP Attending physician on admission: Sumi Pagan MD Discharging clinician: April Reynolds MD
[2016-12-31 12:03] VITALS: BP 122/71
--- NOTE | 2017-01-12 10:38 | Pathology Report from [facility] ---
ACCESSION # : [id number] PATIENT NAME : Meghan Mohan ORDERING DR : Nicolas Barajas MD CLINICAL HX: LT upper lobe mass POST-OP DX: Same SPECIMEN INFO: LT upper lobe mass BX x 3 GROSS DESCRIPTION: Received in formalin labeled "MEGHAN MOHAN & LT LOBE LUNG " is an aggregate of light brown tissue measuring 0.7 x 0.3 cm collectively, submitted in one cassette. DIAGNOSIS FOR MEGHAN MOHAN: LUNG, LEFT UPPER LOBE, BIOPSY: MSmall group of dysplastic/ atypical epithelial cells suggestive of non-small cell carcinoma , consultation will be sought. See note.The following is the consultation report from Meghan Choi MD., [facility], [place], [place]:LUNG , LEFT UPPER LOBE, BIOPSY: Microscopic cluster of highly atypical epithelial cells consistent with non-small cell carcinoma, in a background of chronic inflammation. See note.Note: Submitted immunohistochemical stains show that the atypical cells are positive for pancytokeratin. Immunostains performed at the [facility] show that the atypical cells are negative for TTF and p40. SERVICE DATE: 12/28/2016 REPORT DATE: 01/12/2017 PATHOLOGIST: Deepak Reyes III, M.D. MTDD
== END 2016-12-31 13:16 | disposition home or self-care (01) | DRG 206 ==
LOC: N.EDINP 13:58 → N.ED 13:58 → N.TELES 15:57 → SUATTDRO 12-27 15:48
PROVIDERS: ADMIT Internal Medicine; ATTEND Internal Medicine

== ENCOUNTER 2017-03-02 05:00 | Inpatient (IN) ==
[2017-02-27 09:42] LABS: Basophils # 0.1 10*3/uL (0.0-0.2); Basophils % 1.2 % (0.0-0.8); Eosinophils # 0.2 10*3/uL (0.0-0.87); Hematocrit 43.4 VOL% (42.0-52.0); Hemoglobin 14.2 GM/DL (14.0-18.0); Immature Granulocytes % 0.4 %; Immature Granulocytes Absolute 0.04 #; Lymphocytes # 2.5 10*3/uL (1.4-4.0); Lymphocytes % 22.6 % (21.2-54.2); Mean Corpuscular HGB Conc 32.7 GM/DL (32-36); Mean Corpuscular Hemoglobin 31 PG (27-34); Mean Corpuscular Volume 94.3 FL (87-102); Mean Platelet Volume 10.8 FL (9.6-12.0); Monocytes # 1.1 10*3/uL (0.11-0.8); Monocytes % 9.6 % (1.7-12.7); Neutrophils # 7.1 10*3/uL (1.4-7.4); Neutrophils % 64.2 % (38.7-73.9); Platelet Count 248 T/CUMM (130-400); Red Cell Distribution Width 14.8 % (9.3-17.3); White Blood Count 11.1 T/CUMM (4-12)
[2017-02-27 09:51] LABS: Partial Thromboplastin Time 27.4 SECS (0-40)
--- NOTE | 2017-02-27 10:07 | EKG Report ---
Stationary ECG Study [facility] Test Date: 02/27/2017 10:07:17 AM Pat Name: MEGHAN JOHNSON Department: Room: Gender: M Director General: FRACISCO CORDOVA [birth year] : 1955 Requested by: Sandro Andrews Order Number: [id number] Reading MD: MICKIE STARK Intervals [place] Rate: 68 P: 80 WV: 152 QRS: 79 QRSD: 84 T: 80 QT: 378 QTc: 394 Interpretive Statements SINUS RHYTHM Electronically Signed On 02-28-17 07:56:40 CDT by MICKIE STARK [email or web address]
[2017-02-27 10:21] LABS: Calcium 9.2 MG/DL (8.5-10.1); Magnesium 2.3 MG/DL (1.8-2.4); Osmolality,Calculated 278.3 MOS/KG (273-304); Potassium 4.9 MMOL/L (3.5-5.1)
--- NOTE | 2017-02-27 10:56 | XRay Report ---
XR chest 2V Indication: Preoperative pulmonary evaluation. Chest 2 views: Pulmonary hyperinflation, peripheral pulmonary vascular attenuation, and normal heart size and mediastinal contour are noted. No discrete infiltrates are seen. Left apical pulmonary nodule is again noted. Impression: No acute cardiopulmonary disease. Continued evidence of COPD and left upper lobe nodule. PROCEDURE INTERPRETED AT [facility] DEPARTMENT OF RADIOLOGY Final Report Signed by: Robert Hair M.D.
[~2017-03-02 05:00] MED LIST: ACETAMINOPHEN INJ 1,000 MG in PREMIX 1 EACH IV ONE; BUPIVACAINE LIPOSOMAL 20 ML/266 MG VIAL INFILTRAT ONE; CEFUROXIME INJ 1,500 MG in SODIUM CHLORIDE 0.9% 100 ML IV ONE
[2017-03-02] MEDS ORDERED: LORazepam 1 MG TABLET ONE (05:54)
[2017-03-02] MEDS ORDERED: CEFUROXIME 1,500 MG VIAL ONE (05:55)
[2017-03-02] MEDS ORDERED: FAMOTIDINE 20 MG TABLET ONE (05:55)
[2017-03-02] MEDS ORDERED: ACETAMINOPHEN 1,000 MG/100 ML VIAL IV ONE (05:55)
[2017-03-02] MEDS ORDERED: SODIUM CHLORIDE 0.9% 100 ML IV ONE (05:55)
[2017-03-02] MEDS ORDERED: FAMOTIDINE 20 MG TABLET PO ONE (06:00)
[2017-03-02] MEDS ORDERED: LACTATED RINGERS 1,000 ML IV SCH (06:00)
[2017-03-02] MEDS ORDERED: LORazepam 1 MG TABLET PO ONE (06:00)
[2017-03-02] MEDS ORDERED: TISSUE ADHESIVE 1 EACH APPLICATOR TOP ONE (06:05)
[2017-03-02] MEDS ORDERED: BUPIVACAINE LIPOSOMAL 20 ML/266 MG VIAL ONE (06:05)
[2017-03-02] MEDS ORDERED: ALBUTEROL/IPRATROPIUM 3 ML NEB RESP TX ONE (06:24)
--- NOTE | 2017-03-02 07:03 | History and Physical Update ---
History and Physical Update - History and Physical H&P was reviewed, the patient examined and there: are no changes in the patients condition since last H&P was completed. - Dictation Physical: refer to scanned H&P
[2017-03-02] MEDS ORDERED: ROCURONIUM 100 MG/10 ML VIAL IV ONE (07:08)
[2017-03-02] MEDS ORDERED: PHENYLEPHRINE 20 MG/250 ML PREMIX IV ONE (07:08)
[2017-03-02] MEDS ORDERED: PHENYLEPHRINE 1 MG/10 ML SYRINGE IV ONE (07:08)
[2017-03-02] MEDS ORDERED: LIDOCAINE 2% 5 ML VIAL ONE (07:08)
[2017-03-02] MEDS ORDERED: ONDANSETRON 4 MG/2 ML VIAL ONE (07:08)
[2017-03-02] MEDS ORDERED: PROPOFOL 200 MG/20 ML VIAL IV ONE (07:08)
[2017-03-02] MEDS ORDERED: ONDANSETRON 4 MG/2 ML VIAL IV PRN ×2 (10:50→11:30)
[2017-03-02] MEDS: HYDROmorphone 2 MG/1 ML VIAL IV PRN ×5 (10:51→12:53)
[2017-03-02] MEDS ORDERED: HYDROmorphone 2 MG/1 ML VIAL ONE (10:53)
[2017-03-02 11:01] LABS: Apearance,Urine CLEAR (Clear); Bacteria,Urine Occasional /HPF (Few); Bilirubin,Urine Negative (Negative); Blood, Urine Large mg/dL (Negative); Glucose,Urine (UA) Negative (Negative); Hyaline Casts,Urine 3 /LPF (0-3); Ketones,Urine Negative (Negative); Nitrite,Urine Negative (Negative); Protein,Urine Negative; RBC,Urine 38 /HPF (0-4); Squamous Epithelial Cell,Urine Occasional /HPF (0-10); Urine Color Yellow (Yellow); Urine Specific Gravity 1.006 (1.001-1.035); Urine Urobilinogen < 2.0 EU/DL (0.2-1.0); WBC,Urine 1 /HPF (0-6)
--- NOTE | 2017-03-02 11:09 | Operative Note ---
Date of procedure: 03/02/17 Pre-op diagnosis: Left upper lobe lung cancer Post-op diagnosis: same Procedure: Procedure: 1. Bronchoscopy 2. left video-assisted thoracoscopy 3. Injection of liposomal bupivacaine with intercostal nerve blocks levels 2, 3 , 4, 5, 6, 7, 8 4. Lysis of adhesions 5. left upper lobectomy 6. Complete mediastinal lymph node dissection Details of the procedure: The patient was brought into the lower placed supine on the OR table and general endotracheal anesthesia was induced without without any problems. Antibiotics were given. Time out was performed and chest were prepped and draped in the usual sterile fashion. At this point I decided to proceed with left video-assisted thoracoscopy to do the left upper lobectomy and mediastinal LN dissection. The patient was turned and the chest was prepared and draped in sterile fashion. An incision was made over the eighth space was entered bluntly. Survey of the chest didn't show any obvious lesions other than the left upper lobe. I proceeded with lysis of adhesions of the lung and chest wall. The inferior pulmonary ligament was taken down and dissected the hilum all around the lung. The left superior pulmonary vein was identified and encircled with silk stitch. Was created and I used a white load stapler to resect the pulmonary vein. Care was taken to preserve the left lower lobe vein. After that we proceeded with identifying the apical anterior artery. Dissection was carried around the artery. After circling the artery successfully I dissected it using white load. I after that identified the interlobar artery and finished the fissure using purple load rafael. This was carried all the way down. After that the bronchus was identified and it was tied using load stapler. Another branch of the PA was also identified and another white load was used to resect that. The lingular artery was identified and resected. The lobe was then handed over after complete resection and then turned my attention to completion of lymph node dissection. Identified level VII lymph node as well as level 5 and 6 lymph nodes. There was collected and the would be sent for permanent pathology. The patient tolerated the procedure well hemostasis was achieved and chest tube were inserted without any problems. The left lower lobe were inflated successfully without any problems. The was not a leak. The patient was extubated and moved to PACU in good condition. Anesthesia: GETA Surgeon / Physician: Sandro Andrews Estimated blood loss: other (300) Specimens: other (Left upper lobe, levels 10, 11, 7, 5 and 6 lymph nodes) Condition: stable Disposition: PACU Results - Labs CBC & BMP: 02/27/17 09:34 02/27/17 09:34 Discharge Plan - Discharge Medications No Action Baclofen Tab [Lioresal] 10 mg PO TID Pregabalin [Lyrica] 100 mg PO TID Tramadol HCl [Tramadol Tab] 50 mg PO TID Amitriptyline [Elavil] 50 mg PO BEDTIME Atorvastatin [Lipitor] 40 mg PO BEDTIME #30 tablet HYDROcodone/ACETAMIN 5-325 [[place] 5-325] 1 tablet PO Q4H PRN PRN Reason: Pain - Follow Up or Referral - Forms/Instructions
--- NOTE | 2017-03-02 11:16 | XRay Report ---
Single view the chest. Indication: Postoperative for thoracotomy. There has been a left thoracotomy. There is a small left pneumothorax, measuring 17 mm at the apex. A chest tube is in satisfactory position. Mild atelectasis of the left lung. Subcutaneous emphysema of the left thorax. Hypoaeration change or early infiltrate is seen at the right lung base. Right IJ line distal tip in the right atrium. Impression: 1. Status post thoracotomy, with small residual pneumothorax and satisfactory position of the chest tube. 2. Scattered right-sided atelectasis. 3. Atelectasis versus early infiltrate in the right lung base. PROCEDURE INTERPRETED AT [facility] DEPARTMENT OF RADIOLOGY Final Report Signed by: Dr. Fatimah Del Rio
[2017-03-02] MEDS ORDERED: DESFLURANE 1 UNIT/15 MINUTE INH ONE (11:38)
[2017-03-02] MEDS ORDERED: LACTATED RINGERS 1,000 ML IV ONE ×2 (11:38→17:55)
[2017-03-02] MEDS ORDERED: MIDAZOLAM 2 MG/2 ML VIAL ONE (11:38)
[2017-03-02 12:29] LABS: Basophils # 0.1 10*3/uL (0.0-0.2); Basophils % 0.5 % (0.0-0.8); Eosinophils # 0.1 10*3/uL (0.0-0.87); Eosinophils % 0.3 % (0.00-10.9); Hematocrit 40.9 VOL% (42.0-52.0); Hemoglobin 13.3 GM/DL (14.0-18.0); Immature Granulocytes % 0.6 %; Immature Granulocytes Absolute 0.14 #; Lymphocytes # 1.9 10*3/uL (1.4-4.0); Lymphocytes % 7.6 % (21.2-54.2); Mean Corpuscular HGB Conc 32.5 GM/DL (32-36); Mean Corpuscular Hemoglobin 31 PG (27-34); Mean Corpuscular Volume 94.5 FL (87-102); Mean Platelet Volume 10.9 FL (9.6-12.0); Monocytes # 2.1 10*3/uL (0.11-0.8); Monocytes % 8.3 % (1.7-12.7); Neutrophils # 20.6 10*3/uL (1.4-7.4); Neutrophils % 82.7 % (38.7-73.9); Platelet Count 241 T/CUMM (130-400); Red Blood Count 4.33 MC/CUMM (3.8-5.5); Red Cell Distribution Width 14.2 % (9.3-17.3); White Blood Count 24.9 T/CUMM (4-12)
[2017-03-02 12:47] LABS: Band Neutrophils 5 % (0-10); Lymphocytes 5 % (20-55); Segmented Neutrophils 82 % (50-85); Total Cells Counted 100
[2017-03-02 12:48] LABS: Hypochromasia 1+; Platelet Estimate Normal
[2017-03-02] MEDS: KETOROLAC 15 MG/1 ML VIAL IV SCH ×3 (12:48→22:17)
[2017-03-02 12:55] LABS: Calcium 7.7 MG/DL (8.5-10.1); Osmolality,Calculated 281.1 MOS/KG (273-304); Potassium 4.2 MMOL/L (3.5-5.1)
[2017-03-02] MEDS ORDERED: GABAPENTIN 100 MG CAPSULE PO SCH (15:00)
--- NOTE | 2017-03-02 15:42 | XRay Report ---
Referring Physician: Sandro Andrews MD Exam: XR chest 1V portable Date: March 02, 2017 at 2:55 PM Reason: Chest tube output Comparison: Chest one view portable March 02, 2017 at 10:45 AM Findings: A right IJ catheter and right chest tube are again in place. There is subcutaneous air at the left chest wall and a pneumothorax at the left lung apex, measuring up to 3 cm in diameter. The pneumothorax is slightly larger in size. The cardiac silhouette is normal in size. There are scattered opacities within both lungs, minimally within the lower lung zones. This likely represents atelectasis, but pneumonia or residual neoplasm cannot be excluded. Minimal left pleural fluid is also suspected. The osseous structures appear stable. . Impression: 1. A left chest tube is again in place with its distal tip at the medial aspect of the left midlung zone. There is a pneumothorax at the left lung apex, which measures up to 3 cm. This is slightly larger than the previous study. Continued follow-up is recommended. 2. Slight improved aeration of the right lung. PROCEDURE INTERPRETED AT [facility] DEPARTMENT OF RADIOLOGY Final Report Signed by: Dr. Dixon Davidson
[2017-03-02] MEDS: ACETAMINOPHEN INJ 1,000 MG in PREMIX 1 EACH IV SCH ×2 (16:31→22:27)
[2017-03-02 18:14] LABS: Hematocrit 32.3 VOL% (42.0-52.0); Hemoglobin 10.8 GM/DL (14.0-18.0)
[2017-03-02] MEDS: CEFUROXIME INJ 1,500 MG in SODIUM CHLORIDE 0.9% 100 ML IV SCH (18:35)
[2017-03-02] MEDS ORDERED: ALBUMIN 5% 25 GM in PREMIX 1 EACH IV ONE (19:38)
[2017-03-02] MEDS ORDERED: ALBUMIN 5% 12.5 GM/250 ML VIAL IV ONE (19:39)
[2017-03-02] MEDS ORDERED: LACTATED RINGERS 500 ML IV ONE (20:54)
[2017-03-02] MEDS: LACTATED RINGERS 1,000 ML IV SCH (22:27)
[2017-03-03] MEDS ORDERED: NALOXONE 0.4 MG/ML VIAL IV PRN (00:35)
[2017-03-03] MEDS: HYDROmorphone PCA 30 MG/30 ML SYRINGE IV SCH (01:48)
[2017-03-03] MEDS: ENOXAPARIN 40 MG/0.4 ML SYRINGE SUBCUT SCH (04:56)
[2017-03-03] MEDS: ACETAMINOPHEN 500 MG TABLET PO SCH ×4 (04:57→21:51)
[2017-03-03] MEDS: KETOROLAC 15 MG/1 ML VIAL IV SCH ×4 (04:57→23:00)
[2017-03-03 05:05] LABS: Basophils # 0.1 10*3/uL (0.0-0.2); Basophils % 0.4 % (0.0-0.8); Eosinophils # 0.1 10*3/uL (0.0-0.87); Eosinophils % 0.7 % (0.00-10.9); Hematocrit 23.2 VOL% (42.0-52.0); Immature Granulocytes % 0.3 %; Immature Granulocytes Absolute 0.04 #; Lymphocytes # 2.6 10*3/uL (1.4-4.0); Lymphocytes % 18.4 % (21.2-54.2); Mean Corpuscular HGB Conc 33.2 GM/DL (32-36); Mean Corpuscular Hemoglobin 31 PG (27-34); Mean Corpuscular Volume 93.9 FL (87-102); Mean Platelet Volume 11.5 FL (9.6-12.0); Monocytes # 1.3 10*3/uL (0.11-0.8); Monocytes % 9.2 % (1.7-12.7); Red Cell Distribution Width 14.1 % (9.3-17.3)
[2017-03-03 05:06] LABS: Hemoglobin 7.7 GM/DL (14.0-18.0); Platelet Count 180 T/CUMM (130-400); Red Blood Count 2.47 MC/CUMM (3.8-5.5)
[2017-03-03 05:25] LABS: Calcium 7.8 MG/DL (8.5-10.1); Osmolality,Calculated 281.1 MOS/KG (273-304)
[2017-03-03] MEDS: LACTATED RINGERS 1,000 ML IV SCH ×2 (05:31→12:12)
[2017-03-03] MEDS: CEFUROXIME INJ 1,500 MG in SODIUM CHLORIDE 0.9% 100 ML IV SCH (06:30)
--- NOTE | 2017-03-03 06:59 | Anesthesia Post-Op ---
Anesthesia Post OP - Post Ansesthetic Evaluation Patient seen in post op: Yes Resp: within normal limits CV: within normal limits Mental: within normal limits Temp: within normal limits Rulz-Ur-Bkfrkrcyy: within normal limits Nausea and Vomiting: within normal limits Pain: within normal limits
[2017-03-03] MEDS ORDERED: SODIUM CHLORIDE 0.9% 250 ML IV PRN (07:03)
[2017-03-03] MEDS: PANTOPRAZOLE 40 MG VIAL IV SCH (08:28)
--- NOTE | 2017-03-03 09:13 | XRay Report ---
History: Postop VATS Date: 03/03/2017 Study: Chest x-ray AP portable Comparison exam: 03/02/2017 There is a continued hydropneumothorax on the left. The apex of the left lung measures 3.9 cm inferior to the level of the apex of the left hemithorax, as compared to 3.2 cm on the previous study. There is some mildly increased atelectasis/infiltrate in the left mid lung and right lung base on the current study. There is increased soft tissue emphysema of the chest wall bilaterally. The left chest tube is is unchanged in position. Right IJ central line is stable. The cardiomediastinal silhouette is stable. Osseous structures are similar. Impression: Mildly increased left apical pneumothorax. Stable positioning of chest tube. Increasing chest wall soft tissue emphysema. Mildly increased atelectasis/infiltrate right lung base and left midlung PROCEDURE INTERPRETED AT [facility] DEPARTMENT OF RADIOLOGY Final Report Signed by: Dr. Socorro Bowie
--- NOTE | 2017-03-03 09:47 | Cardiothoracic Progress Note ---
Assessment and Plan - Time spent with patient Time spent with patient: Greater than 30 minutes (1) Pulmonary nodule Problem details: tobacco abuse history, worrisome for malignancy Status: Acute Assessment and plan: Postoperative day 1 status post left VATS upper lobectomy and mediastinal lymph node dissection. Chest tube output was significant initially however it slowed down after that and now it is serosanguineous. His hemodynamics are stable. His H&H this morning was noted to be 05/21 we will give him 1 unit of blood. We will get him out of bed. Transfer to telemetry. Will DC the arterial line. We will start his home medications Current Visit: No Cardiothoracic Subjective Interval history: The patient has been complaining of pain this morning. [employer] was added to his pain regimen. Of note the patient is chronic pain patient. Exam (Progress Note) - Constitutional Vitals: Period Temp Pulse Resp BP Sys/Goldman Pulse Ox Last 24 Hr 97 F-99.2 F 78-108 10-24 80-163/38-99 94-100 Result/EKG - Labs CBC & BMP: 03/03/17 04:45 03/03/17 04:45 Labs: Laboratory Results - last 24 hr 03/02/17 03/02/17 03/02/17 10:35 12:12 12:12 WBC 24.9 H D RBC 4.33 Hgb 13.3 L Hct 40.9 L MCV 94.5 MCH 31 MCHC 32.5 RDW 14.2 Plt Count 241 MPV 10.9 Neut % (Auto) 82.7 H Lymph % (Auto) 7.6 L [place] % (Auto) 8.3 Eos % (Auto) 0.3 Baso % (Auto) 0.5 Neut # (Auto) 20.6 H Lymph # (Auto) 1.9 [place] # (Auto) 2.1 H Eos # (Auto) 0.1 Baso # (Auto) 0.1 Total Counted 100 Immature Gran % 0.6 Nucleated RBC % 0.0 Immature Gran # 0.14 Segmented Neutrophils 82 Band Neutrophils 5 Lymphocytes 5 L Monocytes 8 Nucleated RBCs # 0.00 Platelet Estimate Normal Hypochromasia 1+ Sodium 142 Potassium 4.2 Chloride 107 Carbon Dioxide 29 Anion Gap 10.2 BUN 8 Creatinine 0.70 GFR Calculation 119 BUN/Creatinine Ratio 11.00 Glucose 108 H Calculated Osmolality 281.1 Calcium 7.7 L Urine Color Yellow Urine Appearance Clear Urine pH 6.0 Ur Specific [place] 1.006 Urine Protein Negative Urine Glucose (UA) Negative Urine Ketones Negative Urine Blood Large Urine Nitrate Negative Urine Bilirubin Negative Urine Urobilinogen < 2.0 H Urine Leukocytes Negative Urine RBC 38 Urine WBC 1 Ur Squamous Epith Cells Occasional Urine Bacteria Occasional Hyaline Casts 3 Ur Culture Indicated? Not indicated Blood Type Antibody Screen Crossmatch Blood Bank Comment 03/02/17 03/03/17 03/03/17 18:00 04:45 04:45 WBC 14.0 H D RBC 2.47 L D Hgb 10.8 L D 7.7 L D Hct 32.3 L 23.2 L MCV 93.9 MCH 31 MCHC 33.2 RDW 14.1 Plt Count 180 D MPV 11.5 Neut % (Auto) 71.0 Lymph % (Auto) 18.4 L [place] % (Auto) 9.2 Eos % (Auto) 0.7 Baso % (Auto) 0.4 Neut # (Auto) 10.0 H Lymph # (Auto) 2.6 [place] # (Auto) 1.3 H Eos # (Auto) 0.1 Baso # (Auto) 0.1 Total Counted Immature Gran % 0.3 Nucleated RBC % 0.0 Immature Gran # 0.04 Segmented Neutrophils Band Neutrophils Lymphocytes Monocytes Nucleated RBCs # 0.00 Platelet Estimate Hypochromasia Sodium 142 Potassium 4.0 Chloride 106 Carbon Dioxide 32 Anion Gap 8.0 BUN 9 Creatinine 0.70 GFR Calculation 119 BUN/Creatinine Ratio 12.00 Glucose 105 Calculated Osmolality 281.1 Calcium 7.8 L Urine Color Urine Appearance Urine pH Ur Specific [place] Urine Protein Urine Glucose (UA) Urine Ketones Urine Blood Urine Nitrate Urine Bilirubin Urine Urobilinogen Urine Leukocytes Urine RBC Urine WBC Ur Squamous Epith Cells Urine Bacteria Hyaline Casts Ur Culture Indicated? Blood Type Antibody Screen Crossmatch Blood Bank Comment 03/03/17 04:45 WBC RBC Hgb Hct MCV MCH MCHC RDW Plt Count MPV Neut % (Auto) Lymph % (Auto) [place] % (Auto) Eos % (Auto) Baso % (Auto) Neut # (Auto) Lymph # (Auto) [place] # (Auto) Eos # (Auto) Baso # (Auto) Total Counted Immature Gran % Nucleated RBC % Immature Gran # Segmented Neutrophils Band Neutrophils Lymphocytes Monocytes Nucleated RBCs # Platelet Estimate Hypochromasia Sodium Potassium Chloride Carbon Dioxide Anion Gap BUN Creatinine GFR Calculation BUN/Creatinine Ratio Glucose Calculated Osmolality Calcium Urine Color Urine Appearance Urine pH Ur Specific [place] Urine Protein Urine Glucose (UA) Urine Ketones Urine Blood Urine Nitrate Urine Bilirubin Urine Urobilinogen Urine Leukocytes Urine RBC Urine WBC Ur Squamous Epith Cells Urine Bacteria Hyaline Casts Ur Culture Indicated? Blood Type Cancelled Antibody Screen Cancelled Crossmatch See Detail Blood Bank Comment Cancelled
[2017-03-03] MEDS ORDERED: traMADol 50 MG TABLET PO PRN (10:51)
--- NOTE | 2017-03-03 10:54 | XRay Report ---
XR chest 1V portable Indication: Subcutaneous emphysema Comparison: 03 Mar 2017 at 2:50 AM Findings: The heart and mediastinum are similar in size and configuration. There is extensive subcutaneous emphysema. There is suggestion of small pneumothorax on the left similar when compared to previous study. Areas of increased left lung density are present similar to previous. Impression: No significant changes. PROCEDURE INTERPRETED AT [facility] DEPARTMENT OF RADIOLOGY Final Report Signed by: Dr. Sukhdev Diaz
[2017-03-03 13:29] LABS: Hematocrit 24.6 VOL% (42.0-52.0); Hemoglobin 8.3 GM/DL (14.0-18.0)
[2017-03-03] MEDS: traMADol 50 MG TABLET PO SCH ×2 (16:01→21:45)
[2017-03-03] MEDS: BACLOFEN 10 MG TABLET PO SCH ×2 (16:01→21:44)
[2017-03-03] MEDS: PREGABALIN 100 MG CAPSULE PO SCH ×2 (16:01→21:43)
[2017-03-03 19:07] LABS: INR 1.1; PT Patient Result 11.3 SECS; Partial Thromboplastin Time 31.2 SECS (0-40)
[2017-03-03] MEDS: ATORVASTATIN 40 MG TABLET PO SCH (21:44)
[2017-03-03] MEDS: AMITRIPTYLINE 50 MG TABLET PO SCH (21:51)
[2017-03-04] MEDS ORDERED: SODIUM CHLORIDE 0.45% 500 ML IV ONE (00:43)
[2017-03-04] MEDS: HYDROmorphone PCA 30 MG/30 ML SYRINGE IV SCH (02:04)
[2017-03-04 04:23] LABS: Basophils % 0.1 % (0.0-0.8); Eosinophils # 0.2 10*3/uL (0.0-0.87); Eosinophils % 2.3 % (0.00-10.9); Hematocrit 22.2 VOL% (42.0-52.0); Hemoglobin 7.3 GM/DL (14.0-18.0); Immature Granulocytes % 0.5 %; Immature Granulocytes Absolute 0.05 #; Lymphocytes # 1.9 10*3/uL (1.4-4.0); Lymphocytes % 18.2 % (21.2-54.2); Mean Corpuscular HGB Conc 32.9 GM/DL (32-36); Mean Corpuscular Hemoglobin 30 PG (27-34); Mean Corpuscular Volume 92.5 FL (87-102); Mean Platelet Volume 11.7 FL (9.6-12.0); Monocytes % 9.5 % (1.7-12.7); Neutrophils # 7.4 10*3/uL (1.4-7.4); Neutrophils % 69.4 % (38.7-73.9); Platelet Count 152 T/CUMM (130-400); Red Cell Distribution Width 15.6 % (9.3-17.3); White Blood Count 10.7 T/CUMM (4-12)
[2017-03-04 04:53] LABS: Calcium 8.1 MG/DL (8.5-10.1); Potassium 3.9 MMOL/L (3.5-5.1)
[2017-03-04] MEDS: ACETAMINOPHEN 500 MG TABLET PO SCH ×4 (06:01→23:49)
[2017-03-04] MEDS: ENOXAPARIN 40 MG/0.4 ML SYRINGE SUBCUT SCH (06:01)
[2017-03-04] MEDS: KETOROLAC 15 MG/1 ML VIAL IV SCH (06:02)
[2017-03-04] MEDS: PREGABALIN 100 MG CAPSULE PO SCH ×3 (09:42→21:07)
[2017-03-04] MEDS: traMADol 50 MG TABLET PO SCH ×3 (09:42→21:08)
[2017-03-04] MEDS: BACLOFEN 10 MG TABLET PO SCH ×3 (09:42→21:06)
[2017-03-04] MEDS: PANTOPRAZOLE 40 MG VIAL IV SCH (09:45)
--- NOTE | 2017-03-04 09:48 | XRay Report ---
Referring Physician: Sandro Andrews MD Exam: XR chest 1V portable Date: March 04, 2017 at 7:51 AM Reason: Subcutaneous emphysema Comparison: Chest one view portable March 03, 2017 Findings: A right-sided central venous catheter and left chest tube are again in place. There is extensive subcutaneous air in the supraclavicular regions and at the left chest. This makes evaluation for a left pneumothorax difficult, but a small left pneumothorax is suspected. The heart is stable in size. There are scattered opacities throughout the left lung and mild scattered opacities within the right mid and lower lung zones. This likely represents atelectasis and pulmonary edema, but there could also be pneumonia. Evaluation for residual neoplasm is limited in this patient with a history of lung cancer. There is also mild left pleural fluid, which may have increased. The osseous structures appear stable. Impression: 1. A left chest tube is again in place, and there is prominent subcutaneous air in the supraclavicular regions and at the left chest, similar to before. A small left pneumothorax is suspected and has not significantly changed. 2. There are scattered opacities throughout the left lung and mild scattered opacities within the right lung. The opacities within the left lung have slightly increased, and there may be increased left pleural fluid. PROCEDURE INTERPRETED AT [facility] DEPARTMENT OF RADIOLOGY Final Report Signed by: Dr. Dixon Davidson
[2017-03-04 18:42] LABS: Hematocrit 23.3 VOL% (42.0-52.0)
[2017-03-04] MEDS: CELECOXIB 200 MG CAPSULE PO SCH (21:06)
[2017-03-04] MEDS: ATORVASTATIN 40 MG TABLET PO SCH (21:07)
[2017-03-04] MEDS: AMITRIPTYLINE 50 MG TABLET PO SCH (21:07)
[2017-03-05 04:22] LABS: Basophils % 0.1 % (0.0-0.8); Eosinophils # 0.3 10*3/uL (0.0-0.87); Eosinophils % 3.4 % (0.00-10.9); Hematocrit 22.6 VOL% (42.0-52.0); Hemoglobin 7.7 GM/DL (14.0-18.0); Immature Granulocytes % 0.4 %; Immature Granulocytes Absolute 0.04 #; Lymphocytes # 2.1 10*3/uL (1.4-4.0); Mean Corpuscular HGB Conc 34.1 GM/DL (32-36); Mean Corpuscular Hemoglobin 30 PG (27-34); Mean Corpuscular Volume 89.3 FL (87-102); Mean Platelet Volume 11.7 FL (9.6-12.0); Monocytes # 1.1 10*3/uL (0.11-0.8); Monocytes % 12.1 % (1.7-12.7); Neutrophils # 5.5 10*3/uL (1.4-7.4); Platelet Count 162 T/CUMM (130-400); Red Blood Count 2.53 MC/CUMM (3.8-5.5); Red Cell Distribution Width 15.4 % (9.3-17.3)
[2017-03-05 04:43] LABS: Calcium 8.2 MG/DL (8.5-10.1); Osmolality,Calculated 286.7 MOS/KG (273-304); Potassium 3.5 MMOL/L (3.5-5.1)
[2017-03-05] MEDS: ENOXAPARIN 40 MG/0.4 ML SYRINGE SUBCUT SCH (05:46)
[2017-03-05] MEDS: ACETAMINOPHEN 500 MG TABLET PO SCH ×4 (05:46→23:36)
[2017-03-05 05:49] LABS: Band Neutrophils 1 % (0-10); Eosinophils 3 % (0-10); Hypochromasia 1+; Lymphocytes 22 % (20-55); Nucleated Red Blood Cells 3 (0-5); Platelet Estimate Normal; Segmented Neutrophils 64 % (50-85); Total Cells Counted 100
[2017-03-05] MEDS: PREGABALIN 100 MG CAPSULE PO SCH ×3 (09:16→20:49)
[2017-03-05] MEDS: CELECOXIB 200 MG CAPSULE PO SCH ×2 (09:16→20:50)
[2017-03-05] MEDS: BACLOFEN 10 MG TABLET PO SCH ×3 (09:16→20:48)
[2017-03-05] MEDS: traMADol 50 MG TABLET PO SCH ×3 (09:17→20:50)
[2017-03-05] MEDS: PANTOPRAZOLE 40 MG VIAL IV SCH (09:18)
--- NOTE | 2017-03-05 11:08 | XRay Report ---
Exam: Chest 2 views Date: March 05, 2017 at 7:58 AM Comparison: Chest one view portable March 04, 2017 Reason: Left upper lobe lobectomy Findings: A right IJ catheter is again in place with its distal tip within the right atrium. A left chest tube is also present with its distal tip at the medial aspect of the left midlung zone. Prominent subcutaneous edema is again seen at the chest and supraclavicular regions, mainly on the left. At least a mild left pneumothorax is suspected and may have slightly increased in size. This is difficult to accurately measure. There is volume loss at the left lung and prominent patchy opacities within the left lung. There are also mild scattered opacities within the right lung. This likely represents atelectasis and pulmonary edema, but superimposed pneumonia is not excluded. Evaluation for residual neoplasm in this patient with a history of lung cancer is limited. There is mild left pleural fluid which extends along the peripheral aspect of the left lung. The osseous structures appear stable. Impression: 1. A left chest tube is again in place. Prominent subcutaneous air is again seen in the supraclavicular regions and at the chest, mainly on the left. At least a small left pneumothorax is suspected but is difficult to accurately measure. It has likely slightly increased in size. 2. There is mild left pleural fluid which extends along the peripheral aspect of the left lung. The amount of left pleural fluid may be slightly increased. 3. There is again volume loss and patchy opacities at the left lung and mild scattered opacities within the right lung. This is similar to before. PROCEDURE INTERPRETED AT [facility] DEPARTMENT OF RADIOLOGY Final Report Signed by: Dr. Dixon Davidson
[2017-03-05] MEDS ORDERED: LACTULOSE 20 GM/30 ML UDCUP PO PRN (12:48)
--- NOTE | 2017-03-05 12:58 | Cardiothoracic Progress Note ---
Assessment and Plan (1) Pulmonary nodule Problem details: tobacco abuse history, worrisome for malignancy Status: Acute Assessment and plan: Postoperative day 3 status post left VATS upper lobectomy and mediastinal lymph node dissection. Chest tube output is serous more than sanguinous. The patient will receive 1 unit of packed RBCs for delusional anemia. His subcutaneous emphysema significantly improved. We will keep the chest tube to suction today. Current Visit: No Exam (Progress Note) - Constitutional Vitals: Period Temp Pulse Resp BP Sys/Goldman Pulse Ox Last 24 Hr 96.7 F-99.5 F 69-96 16-20 92-129/50-77 91-98 Result/EKG - Labs CBC & BMP: 03/05/17 03:46 03/05/17 03:46 Labs: Laboratory Results - last 24 hr 03/04/17 03/04/17 03/05/17 03:31 18:28 03:46 WBC 9.0 RBC 2.53 L Hgb 8.0 L 7.7 L Hct 23.3 L 22.6 L MCV 89.3 MCH 30 MCHC 34.1 RDW 15.4 Plt Count 162 MPV 11.7 Neut % (Auto) 61.0 Lymph % (Auto) 23.0 Wilkin % (Auto) 12.1 Eos % (Auto) 3.4 Baso % (Auto) 0.1 Neut # (Auto) 5.5 Lymph # (Auto) 2.1 Wilkin # (Auto) 1.1 H Eos # (Auto) 0.3 Baso # (Auto) 0.0 Total Counted 100 Immature Gran % 0.4 Nucleated RBC % 0.0 Immature Gran # 0.04 Segmented Neutrophils 64 Band Neutrophils 1 Lymphocytes 22 Monocytes 10 Eosinophils 3 Nucleated RBCs 3 Nucleated RBCs # 0.00 Platelet Estimate Normal Hypochromasia 1+ Sodium Potassium Chloride Carbon Dioxide Anion Gap BUN Creatinine GFR Calculation BUN/Creatinine Ratio Glucose Calculated Osmolality Calcium Blood Type A NEGATIVE Antibody Screen Negative Crossmatch See Detail 03/05/17 03/05/17 03:46 Unknown WBC RBC Hgb Hct MCV MCH MCHC RDW Plt Count MPV Neut % (Auto) Lymph % (Auto) Wilkin % (Auto) Eos % (Auto) Baso % (Auto) Neut # (Auto) Lymph # (Auto) Wilkin # (Auto) Eos # (Auto) Baso # (Auto) Total Counted Immature Gran % Nucleated RBC % Immature Gran # Segmented Neutrophils Band Neutrophils Lymphocytes Monocytes Eosinophils Nucleated RBCs Nucleated RBCs # Platelet Estimate Hypochromasia Sodium 145 Potassium 3.5 Chloride 105 Carbon Dioxide 34 H Anion Gap 9.5 BUN 10 Creatinine 0.50 L GFR Calculation 139 BUN/Creatinine Ratio 20.00 Glucose 97 Calculated Osmolality 286.7 Calcium 8.2 L Blood Type Antibody Screen Crossmatch See Detail
[2017-03-05 18:29] LABS: Hematocrit 25.9 VOL% (42.0-52.0); Hemoglobin 8.7 GM/DL (14.0-18.0)
[2017-03-05] MEDS: ATORVASTATIN 40 MG TABLET PO SCH (20:49)
[2017-03-05] MEDS: AMITRIPTYLINE 50 MG TABLET PO SCH (20:51)
[2017-03-06] MEDS: ACETAMINOPHEN 500 MG TABLET PO SCH ×3 (04:11→16:06)
[2017-03-06] MEDS: ENOXAPARIN 40 MG/0.4 ML SYRINGE SUBCUT SCH (04:11)
[2017-03-06] MEDS: traMADol 50 MG TABLET PO SCH ×3 (08:12→21:10)
[2017-03-06] MEDS: BACLOFEN 10 MG TABLET PO SCH ×3 (08:12→21:10)
[2017-03-06] MEDS: CELECOXIB 200 MG CAPSULE PO SCH ×2 (08:12→21:10)
[2017-03-06] MEDS: PANTOPRAZOLE 40 MG VIAL IV SCH (08:13)
[2017-03-06] MEDS: PREGABALIN 100 MG CAPSULE PO SCH ×3 (08:13→21:11)
--- NOTE | 2017-03-06 09:56 | XRay Report ---
XR chest 2V Indication: Left pleural effusion Comparison: Chest x-ray dated March 05, 2017 Technique: Frontal and lateral views of the chest Findings: Left-sided chest tube and right-sided central venous catheter appear grossly unchanged. Cardiomediastinal silhouette remains obscured. Small to moderate left hydropneumothorax remains. There has been mild interval increased aeration of the left lung. Continued subcutaneous emphysema within the left chest and bilateral neck base. IMPRESSION: As above. PROCEDURE INTERPRETED AT [facility] DEPARTMENT OF RADIOLOGY Final Report Signed by: Dr Warren Trejo
--- NOTE | 2017-03-06 11:20 | Pathology Report from [facility] ---
ACCESSION # : [id number] PATIENT NAME : Silvino Johnson ORDERING DR : Sandro Andrews MD CLINICAL HX: LT lung upper lobe lesion POST-OP DX: Same SPECIMEN INFO: #1 Level 10 L #2 Level 10 L #3 Level 11 #4 Level 5 #5 LT upper lobe #6 Level 6 #7 Level 7 GROSS DESCRIPTION: Received in formalin in seven parts labeled Dallas Johnson: "#1 LEVEL 10 L" is a 0.6 x 0.4 cm black tissue fragment. Submitted in cassette # 1. "#2 10 L" consists of two reddish black tissue fragments together measuring 0.8 x 0.5 cm. Submitted in #2. "#3 LEVEL 11" is a 1.3 x up to 0.9 cm reddish black tissue fragment. Submitted in cassette #3. "#4 LEVEL 5" is two dark red soft tissue fragment. The first measuring 1 x 0.7 cm and the second 1.1 x 0.6 cm. Submitted in #4. "#5 SILVINO JOHNSON" is a left upper lobe lung measuring 23.0 x 9.0 x 3.2 cm. The pleural surface is smooth with blackened anthracotic changes noted. Sectioning reveals a gutiérrez cohn mass measuring 2.0 x 2.8 cm which grossly extends to the pleural surface and is situated 8.0 cm from the bronchial margin. The remaining cut surfaces are spongy and hemorrhagic with no other masses appreciated. A few anthracotic lymph nodes are seen measuring up to 0.8 cm. Also seen are a few blebs measuring up to 1.0 cm. Sections 5A Bronchial and vascular margins, 5B-5D Mass and pleural surface, 5E Lymph nodes, 5F- bleb."#6 SILVINO JOHNSON" is a 1.4 x 0.9 cm dark red tissue fragment. Sectioned and submitted in cassette #6. "#7 SILVINO JOHNSON" are four reddish black soft tissue fragments collectively measuring 2 x 0.7 cm. Submitted in cassette #7. 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 HISTOLOGIC GRADE: Poorly differentiated. TUMOR SIZE: 2.8 x 2.0 cm. TUMOR SITE: Peripheral/ Subpleural JUAN PABLO. MARGINS: All margins uninvolved with carcinoma with nearest (bronchial) margin = 80 mm. FOCALITY: Unifocal. VISCERAL PLEURAL INVASION: Not Present. EXTRAPULMONARY EXTENSION: Not Present. LYMPHOVASCULAR INVASION: Not present. TUMOR ASSOCIATED PNEUMONITIS OR ATELECTASIS: Not present. LYMPH NODES: Number examined = 8 (Levels 5, 6, 7, 10(x2), 11, 12, 13) ; Number positive = 0. ADDITIONAL FINDINGS: Emphysematous changes with pulmonary blebs. AJCC PATHOLOGIC STAGE IA (pT1bN0).NOTE: Tumor cells show immunophenotype CK7+/ CK20- / TTF-1-/ CDX2-/ CA19-9-/ PLAP+(weak)/ vimentin-/ HepPar1-/ CEA-/ GATA3-, which is nonspecific. History of no prior tumors and PET scan showing only pulmonary uptake, are c/w non small cell lung carcinoma. SERVICE DATE: 03/02/2017 REPORT DATE: 03/03/2017 PATHOLOGIST: Shahzad Ornelas M.D. [facility]
--- NOTE | 2017-03-06 16:58 | Cardiothoracic Progress Note ---
Assessment and Plan (1) Pulmonary nodule Problem details: tobacco abuse history, worrisome for malignancy Status: Acute Assessment and plan: Postoperative day 4 status post left VATS upper lobectomy and mediastinal lymph node dissection. I stopped the suction on the chest tube. The patient has been doing very well without any problems. He should increase his activity today. I would anticipate removing the chest tube tomorrow and likely discharge home tomorrow. Current Visit: No Exam (Progress Note) - Constitutional Vitals: Period Temp Pulse Resp BP Sys/Goldman Pulse Ox Last 24 Hr 97.3 F-98.5 F 66-81 16-20 108-127/53-66 94-98 Result/EKG - Labs CBC & BMP: 03/05/17 18:06 03/05/17 03:46 Labs: Laboratory Results - last 24 hr 03/05/17 03/05/17 18:06 Unknown Hgb 8.7 L Hct 25.9 L Crossmatch See Detail Specialty Discharge - Follow Up or Referrals
[2017-03-06] MEDS: ATORVASTATIN 40 MG TABLET PO SCH (21:10)
[2017-03-06] MEDS: AMITRIPTYLINE 50 MG TABLET PO SCH (21:10)
[2017-03-07] MEDS: ACETAMINOPHEN 500 MG TABLET PO SCH ×3 (02:04→11:32)
[2017-03-07] MEDS: ENOXAPARIN 40 MG/0.4 ML SYRINGE SUBCUT SCH (06:28)
[2017-03-07] MEDS: BACLOFEN 10 MG TABLET PO SCH (08:39)
[2017-03-07] MEDS: CELECOXIB 200 MG CAPSULE PO SCH (08:39)
[2017-03-07] MEDS: PREGABALIN 100 MG CAPSULE PO SCH (08:39)
[2017-03-07] MEDS: traMADol 50 MG TABLET PO SCH (08:39)
[2017-03-07] MEDS: PANTOPRAZOLE 40 MG VIAL IV SCH (08:39)
--- NOTE | 2017-03-07 09:26 | XRay Report ---
XR chest 2V Indication: Left upper lobectomy Comparison: Chest x-ray dated March 06, 2017 Technique: Frontal and lateral views of the chest Findings: Cardiomediastinal silhouette remains obscured. Significant left pleural-parenchymal abnormality with pleural fluid noted as well as small pleural air superiorly. Subcutaneous emphysema again noted within the left chest wall and bilateral neck base. IMPRESSION: No significant interval change. PROCEDURE INTERPRETED AT [facility] DEPARTMENT OF RADIOLOGY Final Report Signed by: Dr Warren Trejo
[2017-03-07 10:30] LABS: Basophils % 0.3 % (0.0-0.8); Eosinophils # 0.3 10*3/uL (0.0-0.87); Eosinophils % 2.3 % (0.00-10.9); Immature Granulocytes % 0.5 %; Immature Granulocytes Absolute 0.06 #; Lymphocytes # 1.3 10*3/uL (1.4-4.0); Lymphocytes % 11.3 % (21.2-54.2); Mean Corpuscular HGB Conc 32.1 GM/DL (32-36); Mean Corpuscular Hemoglobin 30 PG (27-34); Mean Corpuscular Volume 94.6 FL (87-102); Mean Platelet Volume 10.7 FL (9.6-12.0); Monocytes # 1.8 10*3/uL (0.11-0.8); Monocytes % 15.7 % (1.7-12.7); Neutrophils # 7.8 10*3/uL (1.4-7.4); Neutrophils % 69.9 % (38.7-73.9); Platelet Count 246 T/CUMM (130-400); Red Blood Count 2.96 MC/CUMM (3.8-5.5); Red Cell Distribution Width 15.1 % (9.3-17.3); White Blood Count 11.1 T/CUMM (4-12)
--- NOTE | 2017-03-07 10:52 | Discharge Summary ---
Hospital Course - Hospital Course Hospital Course: The patient came into the preop area was evaluated and was noted to be fit for surgery. The patient was taken to the OR and left VATS upper lobectomy and mediastinal lymph node dissection was performed without any problems. The patient was then observed overnight in the ICU. He did very well without any problems. His pain was well-controlled. He was transferred to telemetry in good condition. He was ambulating well and tolerating his diet. I keep the chest tube for postoperative day 2 and 3 because of increased output. He required total of 3 units of packed RBCs transfusion over the course of his stay due to dilutional anemia and increased chest tube output. He eventually did very well and his chest tube output decreased down all the way down to 50 cc per day of serous fluid. The chest tube was removed and chest x-ray looked acceptable after removal. On postoperative day number #5 he was ready for discharge. - Time spent with patient Time with patient DS: Greater than 30 minutes Diagnosis - Discharge Diagnosis (1) Pulmonary nodule Status: Acute Specialty Discharge - Follow Up or Referrals Discharge Plan - Discharge Data Disposition: Disch To Home/Self Care Condition at Discharge: Stable Discharge Diet: advance to your usual diet Activity: resume usual activities as tolerated Hygiene: no restrictions Contact your physician if you experience:: fever over 101, Redness or swelling, Nausea/Vomiting, Shortness of breath - Discharge Medications New Acetaminophen Tab [Tylenol Tab] 1,000 mg PO Q6H #60 tablet Amitriptyline [Elavil] 50 mg PO BEDTIME tablet Celecoxib [Celebrex] 200 mg PO BID #60 capsule Continue Baclofen Tab [Lioresal] 10 mg PO TID Pregabalin [Lyrica] 100 mg PO TID Tramadol HCl [Tramadol Tab] 50 mg PO TID Atorvastatin [Lipitor] 40 mg PO BEDTIME #30 tablet HYDROcodone/ACETAMIN 5-325 [Clinton 5-325] 1 tablet PO Q4H PRN PRN Reason: Pain Discontinued Amitriptyline [Elavil] 50 mg PO BEDTIME - Follow Up or Referral - Forms/Instructions Instructions: Video-Assisted Thoracoscopic Surgery (DC), Video-assisted Mediastinoscopy (DC) Exam - Constitutional Vitals: Period Temp Pulse Resp BP Sys/Goldman Pulse Ox Last 24 Hr 98 F-99.2 F 71-98 17-20 114-134/61-70 90-96 Discharge Results Procedures and tests throughout hospitalization: Pending Orders 03/07/17 10:19 CBC [Comp Blood Count Auto Diff] Stat 03/07/17 10:30 XR chest 2V Routine Labs on day of discharge: Labs from last 24 hours 03/07/17 10:19 WBC 11.1 RBC 2.96 L Hgb 9.0 L Hct 28.0 L MCV 94.6 MCH 30 MCHC 32.1 RDW 15.1 Plt Count 246 D MPV 10.7 Neut % (Auto) 69.9 Lymph % (Auto) 11.3 L [place] % (Auto) 15.7 H Eos % (Auto) 2.3 Baso % (Auto) 0.3 Neut # (Auto) 7.8 H Lymph # (Auto) 1.3 L [place] # (Auto) 1.8 H Eos # (Auto) 0.3 Baso # (Auto) 0.0 Immature Gran % 0.5 Nucleated RBC % 0.0 Immature Gran # 0.06 Nucleated RBCs # 0.00 DS: Provider Date of admission: 03/02/17 06:15 Primary care physician: . No PCP Attending physician on admission: Sandro Andrews Consults: 03/01/17 12:50 Consult to Anesthesiology [CONS] Routine Consulting Provider: Reason for Anesthesiology: Pre-op Clearance 03/02/17 11:08 Consult to Pharmacy [CONS] Routine Reason for Pharmacy Consult: Adjust Meds Renal Funct Discharging clinician: Sandro Andrews Expected date of discharge: 03/07/17
[2017-03-07 10:53] LABS: Eosinophils 4 % (0-10); Hypochromasia 1+; Lymphocytes 13 % (20-55); Segmented Neutrophils 71 % (50-85); Total Cells Counted 100
[2017-03-07 10:54] LABS: Platelet Estimate Normal
[2017-03-07 11:53] VITALS: BP 124/57
--- NOTE | 2017-03-07 14:07 | XRay Report ---
XR chest 2V Date: 03/07/2017 10:30 AM History: Post chest tube removal Comparison: 03/07/2017 Technique: PA and lateral chest Findings: The heart is minimally enlarged with stable right IJ venous catheter. No significant change in the extensive pleural-parenchymal findings in the left hemithorax with stable air in the pleural space superiorly and subcutaneous emphysema. Stable mediastinum and osseous structures. Impression: No significant change in appearance on the chest. Persistent extensive pleural and parenchymal findings in the left hemithorax with residual moderate left hydropneumothorax and subcutaneous emphysema. Follow-up chest x-ray recommended in patient with recent left thoracotomy with apparent resection of malignant left upper lobe mass.. PROCEDURE INTERPRETED AT [facility] DEPARTMENT OF RADIOLOGY Final Report Signed by: Dr. Ashwini Bryant
== END 2017-03-07 13:47 | disposition home or self-care (01) | DRG 165 ==
LOC: N.SDSINP 06:15 → N.ICU 10:39 → N.TELES 03-03 15:01
PROVIDERS: ADMIT Thoracic Surgery (Cardiothoracic Vascular Surgery); ATTEND Thoracic Surgery (Cardiothoracic Vascular Surgery)

== ENCOUNTER 2019-11-29 21:22 | Inpatient (IN) ==
[2019-11-30] MEDS ORDERED: MAGNESIUM HYDROXIDE SUSP 30 ML UDCUP PO PRN ×2 (00:28→14:27)
[2019-11-30] MEDS ORDERED: BISACODYL 5 MG TABLET PO PRN (00:28)
[2019-11-30] MEDS ORDERED: PROMETHAZINE 25 MG/1 ML VIAL IM PRN (00:28)
[2019-11-30] MEDS ORDERED: LACTATED RINGERS 1,000 ML IV SCH (00:30)
[2019-11-30 01:01] LABS: Basophils # 0.1 10*3/uL (0.0-0.2); Basophils % 0.5 % (0.0-0.8); Eosinophils # 0.3 10*3/uL (0.0-0.87); Eosinophils % 2.7 % (0.00-10.9); Hematocrit 38.4 VOL% (42.0-52.0); Hemoglobin 12.8 GM/DL (14.0-18.0); Immature Granulocytes % 0.5 %; Immature Granulocytes Absolute 0.07 #; Lymphocytes # 1.7 10*3/uL (1.4-4.0); Lymphocytes % 12.9 % (21.2-54.2); Mean Corpuscular HGB Conc 33.3 GM/DL (32-36); Mean Corpuscular Volume 91.6 FL (87-102); Mean Platelet Volume 10.8 FL (9.6-12.0); Monocytes % 9.9 % (1.7-12.7); Neutrophils % 73.5 % (38.7-73.9); Platelet Count 203 T/CUMM (130-400); Red Blood Count 4.19 MC/CUMM (3.8-5.5); Red Cell Distribution Width 13.2 % (9.3-17.3); White Blood Count 12.8 T/CUMM (4-12)
[2019-11-30 01:25] LABS: Alanine Aminotransferase 16 U/L (16-61); Albumin 3.4 G/DL (3.4-5.0); Alkaline Phosphatase 96 U/L (45-117); Aspartate Amino Transferase 16 U/L (0-37); Bilirubin,Total < 0.39 MG/DL (0.2-1.0); Blood Urea Nitrogen 10 MG/DL (7-18); Calcium 8.2 MG/DL (8.5-10.1); Estimated Glom Filtration Rate 81 ML/MIN; Glucose 98 MG/DL (74-106); Osmolality,Calculated 264.4 MOS/KG (273-304); Total Protein 7.6 G/DL (6.4-8.3)
[2019-11-30 01:30] LABS: Apearance,Urine CLEAR (Clear); Bilirubin,Urine Negative (Negative); Blood, Urine Negative (Negative); Glucose,Urine (UA) Negative (Negative); Ketones,Urine Negative (Negative); Nitrite,Urine Negative (Negative); Protein,Urine Negative; RBC,Urine <1 /HPF (0-4); Urine Color Colorless (Yellow); Urine Specific Gravity 1.003 (1.001-1.035); Urine Urobilinogen < 2.0 EU/DL (0.2-1.0)
[2019-11-30 01:32] LABS: INR 0.9; PT Patient Result 10.2 SECS (9.6-12.2)
[2019-11-30] MEDS: MORPHINE 4 MG/1 ML VIAL IV PRN ×2 (01:32→09:20)
[2019-11-30] MEDS: ATORVASTATIN 40 MG TABLET PO SCH ×2 (01:33→20:47)
[2019-11-30] MEDS: AMITRIPTYLINE 50 MG TABLET PO SCH ×2 (01:33→20:47)
[2019-11-30] MEDS ORDERED: ceFAZolin 2,000 MG in PREMIX 1 EACH IV ONE (06:30)
[2019-11-30] MEDS ORDERED: SODIUM CHLORIDE 0.9% 1,000 ML IV ONE (07:58)
[2019-11-30] MEDS: SODIUM CHLOR 0.9% KCL 40 MEQ 40 MEQ/1,000 ML BAG IV SCH ×2 (09:23→23:04)
[2019-11-30] MEDS: BACLOFEN 10 MG TABLET PO SCH ×3 (09:24→20:47)
[2019-11-30] MEDS: DOCUSATE SODIUM 100 MG CAPSULE PO SCH ×3 (09:24→20:48)
[2019-11-30] MEDS: PREGABALIN 100 MG CAPSULE PO SCH ×3 (09:25→20:48)
[2019-11-30] MEDS: ALBUTEROL/IPRATROPIUM 3 ML NEB RESP TX SCH ×4 (11:34→19:31)
[2019-11-30] MEDS ORDERED: BUPIVACAINE MPF 0.5% /EPI 30 ML VIAL ONE (12:04)
[2019-11-30] MEDS ORDERED: DEXAMETHASONE 4 MG/1 ML VIAL ONE ×2 (12:04→16:52)
[2019-11-30] MEDS ORDERED: DEXMEDETOMIDINE 200 MCG/2 ML VIAL ONE (12:23)
[2019-11-30] MEDS ORDERED: TRANEXAMIC ACID 1,000 MG/10 ML VIAL ONE (13:05)
[2019-11-30 15:14] LABS: Apearance,Urine CLEAR (Clear); Bilirubin,Urine Negative (Negative); Blood, Urine Moderate mg/dL (Negative); Glucose,Urine (UA) Negative (Negative); Hyaline Casts,Urine 1 /LPF (0-3); Ketones,Urine Negative (Negative); Mucus,Urine Occasional /LPF (Occasional); Nitrite,Urine Negative (Negative); Protein,Urine Negative; RBC,Urine 5 /HPF (0-4); Squamous Epithelial Cell,Urine Occasional /HPF (0-10); Urine Color Yellow (Yellow); Urine Specific Gravity 1.009 (1.001-1.035); Urine Urobilinogen < 2.0 EU/DL (0.2-1.0); WBC,Urine 1 /HPF (0-6)
[2019-11-30] MEDS ORDERED: ALBUTEROL/IPRATROPIUM 3 ML NEB RESP TX ONE (15:17)
[2019-11-30] MEDS: predniSONE 20 MG TABLET PO SCH (15:53)
[2019-11-30] MEDS: POTASSIUM CHLORIDE 20 MEQ TABLET PO PRN ×3 (15:54→20:46)
[2019-11-30] MEDS ORDERED: SEVOFLURANE 1 UNIT/15 MINUTE INH ONE (16:51)
[2019-11-30] MEDS ORDERED: propofoL 200 MG/20 ML VIAL IV ONE (16:51)
[2019-11-30] MEDS ORDERED: LIDOCAINE 2% 5 ML VIAL ONE (16:51)
[2019-11-30] MEDS ORDERED: ROCURONIUM 100 MG/10 ML VIAL IV ONE (16:52)
[2019-11-30] MEDS ORDERED: ONDANSETRON 4 MG/2 ML VIAL ONE (16:52)
[2019-11-30] MEDS ORDERED: MIDAZOLAM 2 MG/2 ML VIAL ONE (16:52)
[2019-11-30] MEDS ORDERED: HYDROmorphone 2 MG/1 ML VIAL ONE (16:52)
[2019-11-30] MEDS ORDERED: KETAMINE 500 MG/10 ML VIAL ONE (16:52)
[2019-11-30] MEDS ORDERED: LACTATED RINGERS 2,000 ML IV ONE (16:52)
[2019-11-30] MEDS ORDERED: SUCCINYLCHOLINE 200 MG/10 ML VIAL ONE (16:52)
[2019-11-30] MEDS: ceFAZolin 2,000 MG in PREMIX 1 EACH IV SCH (17:37)
[2019-12-01] MEDS: ALBUTEROL/IPRATROPIUM 3 ML NEB RESP TX SCH ×7 (00:08→23:48)
[2019-12-01] MEDS: ceFAZolin 2,000 MG in PREMIX 1 EACH IV SCH (03:03)
[2019-12-01 05:53] LABS: Basophils % 0.1 % (0.0-0.8); Hematocrit 31.2 VOL% (42.0-52.0); Hemoglobin 10.2 GM/DL (14.0-18.0); Immature Granulocytes % 0.4 %; Immature Granulocytes Absolute 0.07 #; Lymphocytes % 6.2 % (21.2-54.2); Mean Corpuscular HGB Conc 32.7 GM/DL (32-36); Mean Corpuscular Volume 93.7 FL (87-102); Mean Platelet Volume 11.5 FL (9.6-12.0); Monocytes % 7.2 % (1.7-12.7); Neutrophils % 86.1 % (38.7-73.9); Platelet Count 159 T/CUMM (130-400); Red Blood Count 3.33 MC/CUMM (3.8-5.5); Red Cell Distribution Width 13.7 % (9.3-17.3); White Blood Count 16.5 T/CUMM (4-12)
[2019-12-01 06:28] LABS: Osmolality,Calculated 276.7 MOS/KG (273-304)
[2019-12-01 06:56] LABS: Risk Ratio 3.2; VLDL CHOLESTEROL 10.8 MG/DL
[2019-12-01] MEDS: MORPHINE 4 MG/1 ML VIAL IV PRN (09:25)
[2019-12-01] MEDS: PREGABALIN 100 MG CAPSULE PO SCH ×3 (09:47→20:45)
[2019-12-01] MEDS: BACLOFEN 10 MG TABLET PO SCH ×3 (09:47→20:46)
[2019-12-01] MEDS: predniSONE 20 MG TABLET PO SCH (09:47)
[2019-12-01] MEDS: ASPIRIN EC 325 MG TABLET PO SCH (09:47)
[2019-12-01] MEDS: DOCUSATE SODIUM 100 MG CAPSULE PO SCH ×4 (09:47→20:46)
[2019-12-01 10:41] LABS: Barbiturates Screen,Urine Negative (Negative); Benzodiazepines Screen,Urine Positive (Negative); Cannabinoid Screen,Urine Positive (Negative); Opiate Screen,Urine Positive (Negative); Phencyclidine Screen,Urine Negative (Negative)
[2019-12-01] MEDS: AMITRIPTYLINE 50 MG TABLET PO SCH (20:45)
[2019-12-01] MEDS: ATORVASTATIN 40 MG TABLET PO SCH (20:46)
[2019-12-01] MEDS: SODIUM CHLOR 0.9% KCL 40 MEQ 40 MEQ/1,000 ML BAG IV SCH (21:03)
[2019-12-02] MEDS: ALBUTEROL/IPRATROPIUM 3 ML NEB RESP TX SCH ×6 (03:58→23:53)
[2019-12-02 05:21] LABS: Basophils % 0.1 % (0.0-0.8); Eosinophils % 0.2 % (0.00-10.9); Hematocrit 26.1 VOL% (42.0-52.0); Hemoglobin 8.5 GM/DL (14.0-18.0); Immature Granulocytes % 0.8 %; Immature Granulocytes Absolute 0.11 #; Lymphocytes # 1.3 10*3/uL (1.4-4.0); Lymphocytes % 9.7 % (21.2-54.2); Mean Corpuscular HGB Conc 32.6 GM/DL (32-36); Mean Corpuscular Volume 93.2 FL (87-102); Mean Platelet Volume 11.5 FL (9.6-12.0); Monocytes % 8.7 % (1.7-12.7); Neutrophils % 80.5 % (38.7-73.9); Platelet Count 154 T/CUMM (130-400); White Blood Count 13.4 T/CUMM (4-12)
[2019-12-02 06:06] LABS: Calcium 8.1 MG/DL (8.5-10.1); Osmolality,Calculated 281.1 MOS/KG (273-304)
[2019-12-02] MEDS: BACLOFEN 10 MG TABLET PO SCH ×3 (09:12→20:25)
[2019-12-02] MEDS: ASPIRIN EC 325 MG TABLET PO SCH (09:12)
[2019-12-02] MEDS: PREGABALIN 100 MG CAPSULE PO SCH ×3 (09:12→20:25)
[2019-12-02] MEDS: DOCUSATE SODIUM 100 MG CAPSULE PO SCH ×4 (09:12→20:25)
[2019-12-02] MEDS ORDERED: TUBERCULIN SKIN TEST 0.1 ML SYRINGE INTRADERM ONE (15:37)
[2019-12-02] MEDS: ATORVASTATIN 40 MG TABLET PO SCH (20:25)
[2019-12-02] MEDS: AMITRIPTYLINE 50 MG TABLET PO SCH (20:25)
[2019-12-03] MEDS: MORPHINE 4 MG/1 ML VIAL IV PRN (03:31)
[2019-12-03] MEDS: ALBUTEROL/IPRATROPIUM 3 ML NEB RESP TX SCH ×2 (03:50→07:37)
[2019-12-03 05:34] LABS: Basophils # 0.1 10*3/uL (0.0-0.2); Basophils % 0.7 % (0.0-0.8); Eosinophils # 0.5 10*3/uL (0.0-0.87); Eosinophils % 4.8 % (0.00-10.9); Hemoglobin 9.2 GM/DL (14.0-18.0); Immature Granulocytes % 0.4 %; Immature Granulocytes Absolute 0.04 #; Lymphocytes # 1.6 10*3/uL (1.4-4.0); Lymphocytes % 17.4 % (21.2-54.2); Mean Corpuscular HGB Conc 32.9 GM/DL (32-36); Mean Corpuscular Volume 93.3 FL (87-102); Mean Platelet Volume 11.3 FL (9.6-12.0); Monocytes % 10.9 % (1.7-12.7); Neutrophils % 65.8 % (38.7-73.9); Platelet Count 191 T/CUMM (130-400); Red Cell Distribution Width 14.5 % (9.3-17.3); White Blood Count 9.4 T/CUMM (4-12)
[2019-12-03 05:51] LABS: Calcium 8.1 MG/DL (8.5-10.1); Osmolality,Calculated 282.1 MOS/KG (273-304)
[2019-12-03 07:56] VITALS: BP 133/79
[2019-12-03] MEDS: BACLOFEN 10 MG TABLET PO SCH (08:56)
[2019-12-03] MEDS: PREGABALIN 100 MG CAPSULE PO SCH (08:56)
[2019-12-03] MEDS: ASPIRIN EC 325 MG TABLET PO SCH (08:56)
[2019-12-03] MEDS: DOCUSATE SODIUM 100 MG CAPSULE PO SCH ×2 (08:56→11:12)
== END 2019-12-03 10:46 | disposition swing bed (61) | DRG 470 ==
LOC: N.3E 23:01
PROVIDERS: ADMIT Orthopaedic Surgery; ATTEND Orthopaedic Surgery